=== PATIENT | female | born 2000 | race Caucasian/White ===

== ENCOUNTER 2023-09-09 08:47 | Outpatient (RCR) | payer OTHER, SELFPAY ==
--- NOTE | 2023-09-09 11:56 | PTOPEVAL1 ---
Assessment and note entered by Odette Vizcarra, PT, DPT Evaluation Information Assessment Status Evaluation Diagnosis R knee pain Onset 1-2 months Subjective Information Pt reports R sided knee pain that is the worst when squatting or when going down stairs. About 1- 2 months ago hit the lateral side of her knee, she does not remember hearing a pop or anything, it just bruised and was swollen. She reports medial knee pain as well as under the patella. 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 Reported Pain Level Pain Score 1: Self Report Assessment PT Clinical Summary Sally presents to therapy today for her initial evaluation with a diagnosis of R knee pain. Today she demonstrates good knee ROM and strength without an increase in pain. She demonstrates good functional stability during stair ambulation and squatting but reports a mild increase in pain during these. Kinesotape was added for knee stability and this decreased pain. Discussed with pt to utilize ice for joint swelling, tape as needed, work on knee/hip stability, and to progress towards a return to PLOF as tolerated. She was issued and HEP to work on for the next month, she will follow up if needed. Plan of Care Interventions Electrical Stimulation,Gait Training,Hot Pack/Cold Pack,Manual Therapy,Neuro Re-education,Patient/ Caregiver Educati,Therapeutic Activities, Therapeutic Exercise PT Services Indicated Yes Treatment Frequency and follow up if needed Duration These treatments will address the objective and functional deficits as defined above. The patient will be advanced safely and appropriately in order for the patient to progress towards his/her prior level of function. Additional exercises will be introduced and as well as a comprehensive home exercise program upon discharge, if needed, ?to ensure carryover of functional gains achieved in the clinic. This treatment plan has been reviewed and agreement upon by the patient.
--- NOTE | 2023-11-25 13:33 | PTOPDC ---
Assessment and note entered by Sangeeta Sandoval DPT Evaluation Information Assessment Status Discharge - Pt Not Present Diagnosis R knee pain Onset 1-2 months Subjective Information - Assessment PT Clinical Summary The patient has not attended therapy since evaluation on 09/09/23. She will be discharged this date. Plan of Care PT Services Indicated No
== END 2023-11-25 15:20 | disposition home or self-care (01) ==
LOC: ANHGOSHPT 08:47
PROVIDERS: PCP Emergency Medicine; Visit Provider Emergency Medicine
DX: M23.300 Other meniscus derangements, unspecified lateral meniscus, right knee (principal)
CPT/HCPCS: 97110; 97161

== ENCOUNTER 2023-10-21 15:47 | Outpatient (CLI) | payer OTHER, SELFPAY ==
--- NOTE | ~2023-10-21 | MR_ITS ---
EXAMINATION: MR knee RT wo con DATE: 10/21/2023 16:17 INDICATION: Other meniscus derangement presenting with anterior right knee pain TECHNIQUE: Magnetic resonance imaging (MRI) of the right knee was performed without intravenous contr ast. Sequences included coronal PD-weighted FSE, coronal PD-weighted FS FSE, sagittal T2-weighted FS E, sagittal PD-weighted FS FSE and axial PD weighted fat saturated FSE. COMPARISON: None. FINDINGS: Medial compartment: Medial meniscus is normal. Mild partial-thickness cartilage loss with subtle chondral surface irregul arity along portions of the anterior to central weightbearing medial femoral condyle. Normal cartilag e along the medial tibial plateau. Lateral compartment: Lateral meniscus is normal. Articular cartilage is normal. Patellofemoral compartment: Preserved cartilage thickness and patellofemoral compartment but with deeper fissuring at the medial patellar facet without degenerative subchondral changes. Ligaments and tendons: Anterior and posterior cruciate ligaments are normal. The medial collateral ligament and fibular brenna ateral ligament complex are normal. The extensor mechanism is normal. The visualized medial and later al hamstring tendons as well as the iliotibial band are normal. Fluid: Physiologic amount of fluid in the joint space. No loose osteochondral bodies identified. Osseous/other: Normal marrow signal. No fracture or pathologic marrow replacing process. IMPRESSION: 1. Deep chondral fissuring without degenerative subchondral changes at the medial patellar facet and mild partial-thickness cartilage loss with subtle chondral surface irregularity along the anterior to central weightbearing medial femoral condyle. 2. Otherwise normal study with normal bones, menisci and stabilizing ligaments of the knee. Reviewed, dictated and finalized at location A. IMPRESSION: 1. Deep chondral fissuring without degenerative subchondral changes at the medi al patellar facet and mild partial-thickness cartilage loss with subtle chondra l surface irregularity along the anterior to central weightbearing medial femor al condyle. 2. Otherwise normal study with normal bones, menisci and stabilizing ligaments of the knee.
--- NOTE | ~2023-10-21 | XR_ITS ---
EXAMINATION: XR knee RT min 4V DATE: 10/21/2023 16:23 INDICATION: Meniscal derangement with anterior right knee pain post injury 3 months prior TECHNIQUE: Weight bearing anteroposterior and Magdaleno, sunrise, and flexed lateral views of the rig ht knee were obtained COMPARISON: None. FINDINGS: Alignment is normal. No fracture. No joint effusion/layering lipohemarthrosis. Soft tissues are unre markable. IMPRESSION: 1. Negative right knee radiographs. Reviewed, dictated and finalized at location A.
== END 2023-10-21 15:48 ==
LOC: MICIMG 15:47
PROVIDERS: PCP Emergency Medicine; Visit Provider Emergency Medicine
DX: M23.300 Other meniscus derangements, unspecified lateral meniscus, right knee (principal)
CPT/HCPCS: 73564; 73721

== ENCOUNTER 2024-04-03 15:17 | Emergency (ER) | payer OTHER, SELFPAY ==
--- NOTE | ~2024-04-03 | XR_ITS ---
XR ankle RT min 3V DATE: 04/03/2024 15:37 INDICATION: Right ankle. Lateral pain. TECHNIQUE: 4 views COMPARISON: None FINDINGS: No swelling, fracture or dislocation of the ankle or disruption of the ankle mortise. No pe riosteal reaction or bone destruction. Ankle joint space is well preserved. IMPRESSION: Negative Reviewed, dictated and finalized at location A. IMPRESSION: Negative
[2024-04-03 15:25] VITALS: BP 118/74; PULSE 82; RESP 16; TEMP 36.6; O2SAT 99
--- NOTE | 2024-04-03 15:43 | ED_ITS ---
HPI - Extremity Injury (Lower) General Chief Complaint: Extremity Injury, Lower Stated Complaint: rolled right ankle Source: patient Mode of arrival: ambulatory Limitations: no limitations History of Present Illness HPI Narrative: 23-year-old female presented for complaint of right ankle pain after injury last night. She states she stepped wrong and rolled the ankle. She has taken ibuprofen. Endorses she has been able to bear weight without difficulty. Pain is mostly with certain movements like rotation of the ankle. Related Data Home Medications Medication Instructions Recorded Confirmed No Home Medications 08/29/23 04/03/24 Allergies Allergy/AdvReac Type Severity Reaction Status Date / Time No Known Allergies Allergy Verified 04/03/24 15:40 Review of Systems Review of Systems: CONSTITUTIONAL: Denies body aches, fever, chills CARDIOVASCULAR: Denies chest pain, palpitations, or edema. SKIN: Denies wounds. MUSCULOSKELETAL: Reports right ankle pain NEUROLOGIC: Denies headache, numbness, tingling, or weakness. PSYCH: Denies depression or anxiety. All systems reviewed & are unremarkable except as noted in HPI and below [facility] Surgical History Surgical History History of tonsillectomy (~2006) Family History Family History Father Heart valve problem Mother Heart valve problem Sibling Asthma Depression Grandparent Colon polyp Heart valve problem COPD (chronic obstructive pulmonary disease) Grandparent Brain cancer Social History Social History 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- coffee and cola Smoking status: Never smoker Tobacco type: e-cigarettes/vaping Alcohol intake: current Drinks per week: 1 Alcohol use details: social Substance use type: does not use Do You Feel Safe in your Home?: Yes Lack of Transportation: No Lack of Food: Never True Current Housing: I Have Housing Concerned About Future Housing: No Difficulty Paying Gas/Electric Bills: No Difficulty Paying for Meds: No Currently Unemployed: No Education: Trade/Vocational Certificate Difficulty w/ Childcare or Family Care: No Living arrangements: alone 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 Please see nursing chart for further information. There is no relevant family history pertinent to the presenting complaint Exam Narrative: GENERAL: Well-appearing CHEST: Speaks in full sentences. No respiratory distress. HEART: Regular rate and rhythm. Normal and equal peripheral pulses. EXTREMITIES: Right ankle has normal strength and sensation, normal range of motion with flexion/extension/rotation, but endorses pain with rotation movement. No edema or ecchymosis, No point tenderness. No open wounds, or obvious deformity; alignment normal, pulse palpable and equal bilaterally, skin warm, dry, pink. Capillary refill less than 3 seconds. SKIN: Warm, dry, no rash. NEURO: Alert and oriented x3. PSYCH: Normal mood and affect Course Course Emergency Course: Patient is aware of diagnosis, understands and agrees to treatment plan. Anticipatory guidance given. Patient agrees to follow-up as directed and is aware of reasons to seek care at the emergency department. Portions of this record may have been created with voice recognition software Level of Care: Express Care Visit Vital Signs Vital signs: Vital Signs Temperature 97.9 F 04/03/24 15:25 Pulse Rate 82 04/03/24 15:25 Respiratory Rate 16 04/03/24 15:25 Blood Pressure 118/74 04/03/24 15:25 Pulse Oximetry 99 04/03/24 15:25 Temperature 97.9 F 04/03/24 15:25 Pulse Rate 82 04/03/24 15:25 Respiratory Rate 16 04/03/24 15:25 Blood Pressure 118/74 04/03/24 15:25 Pulse Oximetry 99 04/03/24 15:25 Reviewed MDM - Extremity Injury (Lower) MDM Narrative Medical decision making narrative: Discussed physical exam findings and x-ray. Uday wrap applied. Advised supportive measures and signs/symptoms to go to the ER. Pt is appropriate for outpt treatment and f/u. Differential Diagnosis Differential diagnosis: Likely ankle sprain and strain and ankle fracture Imaging Data Radiologist's impression: Patient: Sally Haney : 2000 MR#: [id number] Age: 23 Acct:[id number] Loc: [id number] ADM Date: 04/03/24Attending Dr: Ordering Physician: Beatriz Martin APRN Date of Service: 04/03/24 Procedure(s): XR ankle RT min 3V Accession Number(s): [id number] cc: Juan Hawthorne MD; Beatriz Martin APRN~ XR ankle RT min 3V DATE: 04/03/2024 15:37 INDICATION: Right ankle. Lateral pain. TECHNIQUE: 4 views COMPARISON: None FINDINGS: No swelling, fracture or dislocation of the ankle or disruption of the ankle mortise. No periosteal reaction or bone destruction. Ankle joint space is well preserved. IMPRESSION: Negative Discharge Plan Discharge Clinical Impression: Ankle sprain and strain Patient Disposition: Home, Self-Care Condition: Stable Instructions: Antibiotic Form, Ankle Sprain (ED) Additional Instructions: Rest - avoid excessive walking, running jumping etc elevate the right leg; bear weight as tolerated Apply ice 15-20 minute intervals several times a day Keep it wrapped with UDAY or use a soft ankle splint Motrin 600mg every 8 hours, alternate with Tylenol 1000mg every 8 hours as needed Follow up with your primary care provider as needed in 1 week Go to the ER for worsening symptoms or concerns Prescriptions: No Action No Home Medications Follow-up/Referrals: Juan Hawthorne MD [Primary Care Provider] - Stand Alone Forms: Work/School Release IP
== END 2024-04-03 16:14 | disposition home or self-care (01) ==
PROVIDERS: Emergency Provider Nurse Practitioner Family; PCP Emergency Medicine
DX: S93.401A Sprain of unspecified ligament of right ankle, initial encounter (principal); S96.911A Strain of unspecified muscle and tendon at ankle and foot level, right foot, initial encounter; X50.9XXA Other and unspecified overexertion or strenuous movements or postures, initial encounter; F17.290 Nicotine dependence, other tobacco product, uncomplicated
CPT/HCPCS: 73610; 99213; G0463

== ENCOUNTER 2024-07-13 12:33 | Outpatient (CLI) | payer BC, SELFPAY ==
--- OUTSIDE RECORDS SUMMARY | 2024-07-13 13:24 | XMS_ITS | Continuity of Care Document ---
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 It does not include entries that were removed or entered in error. Problem Status Onset Date Problem Type Date of Resolution Comments Source No Known Problems Active Condition [facility]A-[facility] Bryan camacho Medications Combined list of outpatient medications from Department of Defense and Veterans Affairs facilities.Medications provided include 1) outpatient medications from the last 15 months, and 2) patient-reported medications. Medication Details Route Status Patient Instructions Prescription Expires Prescription Number Last Dispense Date Ordering Provider Order Date Order Qty Source FLUARIX QUAD 9982-9479 (influenza virus vaccine quadrival 8530-9484(6 mos and up)/PF), 60MCG/.5ML, SYRINGE, INTRAMUSC, GLAXOSMITHK LINE, .5 ml SYRINGE Active [id number] 4 2023 0.5 Pharmac y Data Transac tion Service Facilit y Immunizations Combined list of available immunizations from the Department of Defense and Veterans Affairs facilities. Immunization Series Date Given Administered By Site Reaction Lot Number CVX Code Drug Treater Status Comments Source measles/mumps /rubella virus vaccine 2021 Louis card Arm, left upper [id number] [employer] Company Inc complet ed measles/m umps/rube lla virus vaccine 03/20/22 Given 0108A-A TIM Randall influenza virus vaccine, inactivated 2021 Louis card Shoul anuel, left (delt oid) [id number] 150 [employer] complet ed influenza virus vaccine, inactivat ed 03/20/22 Given 0108A-A TIM Randall hepatitis A adult vaccine 2019 UNK 52 Unknown complet ed hepatitis A adult vaccine 06/12/19 Given Ambulat ory Pharmac y hepatitis B adult vaccine 2019 UNK 43 Unknown complet ed hepatitis B adult vaccine 06/12/19 Given Ambulat ory Pharmac y influenza, seasonal, injectable 2018 [id number] 141 Seqirus complet ed influenza , seasonal, injectabl e 04/13/19 Given Ambulat ory Pharmac y hepatitis A-hepatitis B vaccine 2018 [id number] GlaxoSmithKli ne complet ed hepatitis A-hepatit is B vaccine 02/17/19 Given Ambulat ory Pharmac y meningococcal A,C,Y,W-135 (MCV4P) 2018 [id number] 114 sanofi pasteur complet ed meningoco ccal A,C,Y,W-1 35 (MCV4P) 12/17/18 Given Ambulat ory Pharmac y hepatitis A-hepatitis B vaccine 2018 [id number] 104 GlaxoSmithKli ne complet ed hepatitis A-hepatit is B vaccine 12/17/18 Given Ambulat ory Pharmac y poliovirus vaccine, inactivated 2018 [id number] 10 sanofi pasteur complet ed polioviru s vaccine, inactivat ed 12/17/18 Given Ambulat ory Pharmac y tetanus, diphtheria, acellular pertu is 2018 [id number] 115 GlaxoSmithKli ne complet ed tetanus, diphtheri a, acellular pertussis 12/17/18 Given Ambulat ory Pharmac y adenovirus vaccine, live 2018 [id number] 4 143 Teva Pharmaceutica ls complet ed adenoviru s vaccine, live 12/17/18 Given Ambulat ory Pharmac y tetanus, diphtheria, acellular pertu is 2018 525NP 115 GlaxoSmithKli ne complet ed tetanus, diphtheri a, acellular pertussis 12/17/18 Given Ambulat ory Pharmac y hepatitis A-hepatitis B vaccine 2018 [id number] 104 GlaxoSmithKli ne complet ed hepatitis A-hepatit is B vaccine 12/17/18 Given Ambulat ory Pharmac y poliovirus vaccine, inactivated 2018 [id number] 10 sanofi pasteur complet ed polioviru s vaccine, inactivat ed 12/17/18 Given Ambulat ory Pharmac y adenovirus vaccine, live 2018 [id number] 4 143 Teva Pharmaceutica ls complet ed adenoviru s vaccine, live 12/17/18 Given Ambulat ory Pharmac y meningococcal A,C,Y,W-135 (MCV4P) 2018 [id number] 114 sanofi pasteur complet ed meningoco ccal A,C,Y,W-1 35 (MCV4P) 12/17/18 Given Ambulat ory Pharmac y measles, mumps and rubella virus vaccine 1 2018 UNK 03 Unknown (UNK) Not Given measles, mumps and rubella virus vaccine DoD poliovirus vaccine, inactivated 1 2018 [id number] 10 Sanofi Pasteur (PMC) complet ed polioviru s vaccine, inactivat ed DoD varicella virus vaccine 1 2018 UNK 21 Unknown (UNK) Not Given varicella virus vaccine DoD hepatitis A and hepatitis B vaccine 1 2018 [id number] 104 SmithKline (SKB) complet ed hepatitis A and hepatitis B vaccine DoD meningococcal polysaccharid e (groups A, C, Y and W-135) diphtheria toxoid conjugate vaccine (MCV4P) 1 2018 [id number] 114 Sanofi Pasteur (PMC) complet ed meningoco ccal polysacch aride (groups A, C, Y and W-135) diphtheri a toxoid conjugate vaccine (MCV4P) DoD tetanus toxoid, reduced diphtheria toxoid, and acellular pertu is vaccine, adsorbed 1 2018 525NP 115 [employer]Kline (SKB) complet ed tetanus toxoid, reduced diphtheri a toxoid, and acellular pertussis vaccine, adsorbed DoD Adenovirus, type 4 and type 7, live, oral 1 2018 [id number] 4 143 [facility] (BRR) complet ed Adenoviru s, type 4 and type 7, live, oral DoD Results Combined list of recent chemistry, hematology and other laboratory results from Department of Defense and Veterans Affairs, ranging from 15 months to all on record, depending upon the facility. Order Name Results Value Reference Range Date Interpretation Specimen Comments Source Infectiou s Disease HIV-1/2 AG/AB 4G CDD LC NEGATIVE 04/07 Result Comment: Performed At: 1 [facility] [id number] [facility] [address] [place] [address] DESIREE SYED PHD Ph:[phone] 0108A-AM Jerrica Zavala Infectiou s Disease Source of Test.LC PostDepSt orage (04/07/23 9:00 AM) 04/07 N 0108A-AM C Bryan Zavala Hematolog y Hemoglob in.LC 12.6 g/dL 03/20 0108A-[facility] Bryan Zavala Hematolog y G-6-PD, Quant LC 9.7 unit/gHb 03/20 Result Comment: When decreased, G-6-PD, Quant. values are associated with acute hemolytic anemia when deficient individuals are exposed to oxidative stress, such as with certain medications (e.g., primaquine), infection, or ingestion of abi beans. Caution: In patients with acute hemolysis (e.g., abnormally low RBC values), testing for G-6-PD may be falsely normal because older erythrocytes with a higher enzyme deficiency have been hemolyzed. Young erythrocytes and reticulocyte s have normal or near-normal enzyme activity. Normal values of G-6-PD may be measured for several weeks following a hemolytic event. Performed At: 01 [facility] [address] [id number] Katelin Medellin MD Ph:[phone] Performed At: [address] [facility] [address] [id number] Min Villalobos MD Ph:[phone] 0108A-AM C Bryan Zavala Hematolog y Sickle Cell Screen Negative (03/20/22 8:20 AM) 03/20 N 0108A-[facility] Bryan Zavala Chemistry POC HCG, Serum Negative IntlUnit/ L 03/20 0108A-[facility] Bryan Zavala Vital Signs Combined list of inpatient and outpatient Vital Signs from Department of Defense and Veterans Affairs, ranging from 12 months to all on record, depending upon the facility. Vital Sign Value Date Comments Source Temperature Oral 37.1 Ayaka 04/08/2023 19:54:00 0108A-[facility] Bryan Julio Peripheral Pulse Rate 76 bpm 04/08/2023 19:54:00 0108A-[facility] Bryan Julio Systolic Blood Pressure 103 mm[Hg] 11/07/20 23 19:54:00 0108A-[facility] Bryan Julio Diastolic Blood Pressure 70 mm[Hg] 023 19:54:00 Jose Miguel-[facility] Bryan Julio Mean Arterial Pressure, Calc 81 mm[Hg] 04/08/2023 19:54:00 010Franki-[facility] Bryan Julio Temperature Temporal Artery 36.4 Ayaka 04/07/2023 14:30:00 Jose Miguel-[facility] Bryan Julio Peripheral Pulse Rate 89 bpm 04/07/2023 14:30:00 [facility] Bryan Julio Systolic Blood Pressure 122 mm[Hg] 04/07/20 23 14:30:00 Jose Miguel-[facility] Bryan Julio Diastolic Blood Pressure 82 mm[Hg] 023 14:30:00 Jose Miguel-[facility] Bryan Julio Temperature Temporal Artery 36.1 Ayaka 03/20/2022 14:01:00 Jose Miguel-[facility] Bryan Julio Systolic Blood Pressure 118 mm[Hg] 03/20/20 22 14:01[facility] Diastolic Blood Pressure 76 mm[Hg] 022 14:01:00 Jose Miguel-[facility] Bryan Julio Peripheral Pulse Rate 86 bpm 03/20/2022 14:01:00 [facility] Julio Encounters Combined list of: 1) Encounters from Department of Veterans Affairs facilities going backup to the last 18 months, not all VA inpatient encounters are included; 2) Encounters from the Department of Defense facilities going backup to 280 months. Location Location Details Encounter Type Encounter Number Reason For Visit Attending Provider ADM Date DC Date Status Disposition Source NADIA Mejia(IEP Soldiers Initial Entry) OUTPATIENT [id number] Notes Entered by: RADHA OZUNA 15 Dec [id number] ------- ------- ------- ------- -- [id number] DAY 1 594 ISMAEL GREENE 12/15 Released w/o Limitations NADIA Mejia([place] Initial Entry) [facility] Carlos A [place](IEP Optometry ) OUTPATIENT [id number] Notes Entered by: Anastasiia MONTOYA 15 Dec 2018 0716 ------- ------- ------- ------- -- Optomet ry Rani EDGAR Corbin 12/15 [facility]o Limitations [facility] [place] [place] Conserv[place] Ex[place] OUTPATIENT [id number] Notes Entered by: Anastasiia MONTERROSO 16 Dec 2018 0944 ------- ------- ------- ------- -- 594 ANIKET MONTERROSO 12/16 [facility]ased w/o Limitations [facility] [place] [facility] [place] OUTPATIENT [id number] Notes Entered by: ELI ROSALES 17 Dec 2018 0640 ------- ------- ------- ------- -- [id number] DAY 3 594 ALLAN NG 12/17 [facility]ased w/o Limitations [facility] [place] [facility] [place] OUTPATIENT [id number] Notes Entered by: RADHA OZUNA 17 Feb 2019 0627 ------- ------- ------- ------- -- E CO 1-48 HALEIGH LEACH 02/17 Released w/o Limitations [facility] [place] Procedures Combined list of: 1) Procedures from Department of Veterans Affairs facilities going back up to thelast 18 months, not all VA non-surgical procedures are included; 2) All procedures from the Department of Defense facilities. Procedure Procedure Type Code Date Perfomer Comments Sourc e No data available for this section Ambulato ry Pharmacy IMMUNIZATION ADMINISTRATION (INCLUDES PERCUTANEOUS, INTRADERMAL, SUBCUTANEOUS, OR INTRAMUSCULAR INJECTIONS); 1 VACCINE (SINGLE OR COMBINATION VACCINE/TOXOID) [facility] ADENOVIRUS VACCINE, TYPE 7, LIVE, FOR ORAL USE [facility] AUDIOMETRIC TESTING OF GROUPS [facility] SCREENING TEST OF VISUAL ACUITY, QUANTITATIVE, BILATERAL [facility] COLLECTION OF VENOUS BLOOD BY VENIPUNCTURE [facility] Vaccines Viral Polio, Inactivated Vaccines Viral Polio, Inactivated 36923 ALLAN NG [facility] Physician Supervised Injection Intramuscular Antibiotic Physician Supervised Injection Intramuscular Antibiotic 39595 BERENICE [facility] Vaccines Adenovirus Type 4 Live, For Oral Use Vaccines Adenovirus Type 4 Live, For Oral Use [address] [place], [place] [address]GLER [facility] Vaccines Adenovirus Type 7 Live, For Oral Use Vaccines Adenovirus Type 7 Live, For Oral Use 73712 [facility] ALLAN NG [facility] Meningococcal Polysaccharide Diphtheria Toxoid Conjugate Vaccine BERENICE, [facility] Immunization Administration By Injection, One Vaccine Immunization Administration By Injection, One Vaccine [address] [place] [address] ALLAN [facility] Immunization Administration By Injection, Each Additional Vaccine Immunization Administration By Injection, Each Additional Vaccine [address] [place] [address] [facility] Hepatitis A And Hepatitis B (Intramuscular Use) Adult Dosage Hepatitis A And Hepatitis B (Intramuscular Use) Adult Dosage 85955 [facility] BERENICE [facility] Tdap Vaccine Tdap Vaccine [address] [place], [place] [address]THEO [facility]ometry Group Testing Audiometry Group Testing 61975 ANIKET MONTERROSO [facility] Venipuncture Venipuncture 03742 ASTRONOMISMAEL Barrientos [facility] Spectacles Services Fitting Monofocal Except For Aphakia Spectacles Services Fitting Monofocal Except For Aphakia 72267 EDGAR PARKER Habitual Rx OD -2.50 DS 20/20 OS -3.25 DS 20/20 PD: 63 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 [facility] Screening Test Of Visual Acuity, Quantitative, Bilateral Screening Test Of Visual Acuity, Quantitative, Bilateral 22013 Radha EDGAR PARKER [facility] Hepatitis A And Hepatitis B (Intramuscular Use) Adult Dosage Hepatitis A And Hepatitis B (Intramuscular Use) Adult Dosage 28389 HALEIGH BONILLA [facility] Immunization Administration By Injection, One Vaccine Immunization Administration By Injection, One Vaccine 70789 HALEIGH BONILLA [facility] Social History Combined list of available smoking, tobacco, and other social history from Department of Defense and Veterans Affairs facilities. Social History Type Response Date Comment Sourc e Female 08/21/2020 Ambulatory Pha rmacy Tobacco Never-cigarette user Cigarette use:. Never-other tobacco user (not cigarettes) Other Tobacco use:. Ambulatory Pharmacy Sexual Orientation Ambula tory Pharmacy Gender identity Ambulator y Pharmacy This section is an empty social history section. DoD Assessment and Plan Combined list of future care activities from Department of Defense and Veterans Affairs facilities (e.g., assessment and plan notes, appointments, orders, and referrals). Additional future care activities may be listed in the Plan of Care section. Result Assessment and Plan Date Source Assessment and Plan No data available for this section 07/13/2024 Ambulatory Pharmacy Functional Status Combined list of recent functional and cognitive assessments recorded at Department of Defense and Veterans Affairs (VA).VA Functional Wood Measurement (FIM) Scale: 1 = Total Assistance (Subject = 0% +), 2 = Maximal Assistance (Subject = 25% +), 3 = Moderate Assistance (Subject = 50% +), 4 = Minimal Assistance (Subject = 75% +), 5 = Supervision, 6 = Modified Wood (Device), 7 = Complete Wood (Timely, Safely). Assessment Date/Time Source Assessment Type Assessment Skill Assessment Score Assessment Details No data available for this section
[2024-07-13 19:33] LABS: Basophils Percent Auto 0.4 % (0.2-1.2); Eosinophils Absolute Auto 0.1 K/mm3 (0-0.3); Hematocrit 38.7 % (37.0-47.0); Immature Granulocyte Absolute 0.01 K/mm3 (0.00-0.031); Immature Granulocyte Percent A 0.1 % (0-0.5); Lymphocytes Absolute Auto 1.56 K/mm3 (0.9-3.2); Lymphocytes Percent Auto 22.3 % (18.3-44.2); Mean Corpuscular HGB Conc 33.6 g/dl (32-36); Mean Corpuscular Hemoglobin 29.5 pg (26-34); Mean Corpuscular Volume 87.8 fl (80-100); Mean Platelet Volume 10.1 fl (7.4-10.4); Monocytes Absolute Auto 0.4 K/mm3 (0.1-0.6); Neutrophils Percent Auto 71.2 % (45.5-73.1); Platelet Count Result 195 k/mm3 (150-375); Red Blood Count 4.41 M/mm3 (4.2-5.4); Red Cell Distribution Width 11.6 % (11.5-14.5)
[2024-07-13 21:43] LABS: Hepatitis B Surface Antigen Negative (Negative); Rubella IgG Antibody 86.5 IU/ML
[2024-07-13 23:17] LABS: Vitamin D 25 Hydroxy 40.1 ng/mL
[2024-07-13 23:25] LABS: HIV 1/2 Ab P24 Ag Result Negative (Negative)
[2024-07-14 00:05] LABS: Iron 90 ug/dL (37-170); Percent Iron Saturation 29 % (20-50)
[2024-07-14 06:39] LABS: Rapid Plasma Reagin Non-Reactive (NonReactive)
[2024-07-14 16:19] LABS: Varicella IgG Antibody 5.92 S/CO
== END 2024-07-13 12:34 | disposition home or self-care (01) ==
LOC: ANHGOSHLAB 12:33
PROVIDERS: Visit Provider Obstetrics & Gynecology
DX: N94.89 Other specified conditions associated with female genital organs and menstrual cycle (principal)
CPT/HCPCS: 36415; 81220; 81329; 82306; 82728; 83540; 83550; 84702; 85025; 86592; 86644; 86703; 86747; 86762; 86787; 86850; 86900; 86901; 87086; 87340; G0432

== ENCOUNTER 2024-11-10 10:21 | Outpatient (CLI) | payer BC, SELFPAY ==
--- OUTSIDE RECORDS SUMMARY | 2024-11-10 11:58 | XMS_ITS | Continuity of Care Document ---
Author Name [facility] Organization [facility] Care Team Providers Care Technical Sme Name Role Phone [facility] Unavailable Unavailable Problems Combined list of problems from Department of Defense and Veterans Affairs facilities. It does not include entries that were removed or entered in error. Problem Status Onset Date Problem Type Date of Resolution Comments Source No Known Problems Active Condition 0108A-[facility] Bryan Ash s Immunizations Combined list of available immunizations from the Department of Defense and Veterans Affairs facilities. 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 Comments Source measles/mumps /rubella virus vaccine 2021 Louis card Arm, left upper [id number] [employer] complet ed measles/m umps/rube lla virus vaccine 03/20/22 Given 0108A-A Bryan Awan t-[place] influenza virus vaccine, inactivated 2021 Louis rs Shoul anuel, left (delt oid) [id number] 150 [employer] complet ed influenza virus vaccine, inactivat ed 03/20/22 Given 0108A-A Bryan Awan t-[place] hepatitis A adult vaccine 2019 [id number] 52 Unknown complet ed hepatitis A adult vaccine 06/12/19 Given Ambulat ory Pharmac y hepatitis B adult vaccine 2019 [id number] 43 Unknown complet ed hepatitis B adult vaccine 06/12/19 Given Ambulat ory Pharmac y influenza, seasonal, injectable 2018 [id number] 141 Seqirus complet ed influenza , seasonal, injectabl e 04/13/19 Given Ambulat ory Pharmac y hepatitis A-hepatitis B vaccine 2018 [id number] GlaxoSmithKli ne complet ed hepatitis A-hepatit is B vaccine 02/17/19 Given Ambulat ory Pharmac y meningococcal A,C,Y,W-135 (MCV4P) 2018 [id number] 114 sanofi pasteur complet ed meningoco ccal A,C,Y,W-1 35 (MCV4P) 12/17/18 Given Ambulat ory Pharmac y hepatitis A-hepatitis B vaccine 2018 [id number] 104 GlaxoSmithKli ne complet ed hepatitis A-hepatit is B vaccine 12/17/18 Given Ambulat ory Pharmac y poliovirus vaccine, inactivated 2018 [id number] 10 sanofi pasteur complet ed polioviru s vaccine, inactivat ed 12/17/18 Given Ambulat ory Pharmac y tetanus, diphtheria, acellular pertu is 2018 [id number] 115 GlaxoSmithKli ne complet ed tetanus, diphtheri a, acellular pertussis 12/17/18 Given Ambulat ory Pharmac y adenovirus vaccine, live 2018 [id number] 143 Teva Pharmaceutica ls complet ed [...] ory Pharmac y poliovirus vaccine, inactivated 2018 [id number] 10 sanofi pasteur complet ed polioviru s vaccine, inactivat ed 12/17/18 Given Ambulat ory Pharmac y adenovirus vaccine, live 2018 [id number] 4 143 Teva Pharmaceutica ls complet ed adenoviru s vaccine, live 12/17/18 Given Ambulat ory Pharmac y meningococcal A,C,Y,W-135 (MCV4P) 2018 [id number] 114 sanofi pasteur complet ed meningoco ccal A,C,Y,W-1 35 (MCV4P) 12/17/18 Given Ambulat ory Pharmac y measles, mumps and rubella virus vaccine 1 2018 UNK 03 Unknown (UNK) Not Given measles, mumps and rubella virus vaccine DoD poliovirus vaccine, inactivated 1 2018 [id number] 10 Sanofi Pasteur (PMC) complet ed polioviru [...] diphtheria toxoid conjugate vaccine (MCV4P) 1 2018 [id number] 114 Sanofi Pasteur (PMC) complet ed meningoco ccal polysacch aride (groups A, C, Y and W-135) diphtheri a toxoid conjugate vaccine (MCV4P) DoD tetanus toxoid, reduced diphtheria toxoid, and acellular pertu is vaccine, adsorbed 2018 [id number] 115 Check-CapKline (SKB) complet ed tetanus toxoid, reduced diphtheri a toxoid, and acellular pertussis vaccine, adsorbed DoD Adenovirus, type 4 and type 7, live, oral 2018 [id number] 4 143 [employer] ([facility]) complet ed Adenoviru s, type 4 and [...] Performed At: 1 [facility] [address] [facility] [address] [place] [address] DESIREE LYNCH PHD Ph:[phone] 0108A-AM Jerrica Zavala Infectiou s Disease Source of Test.LC PostDepSt orage (04/07/23 9:00 AM) 04/07 N 0108A-AM Jerrica Zavala Hematolog y G-6-PD, Quant LC 9.7 [...] following a hemolytic event. Performed At: 01 [facility] [address] [place], [place] [id number] Katelin Medellin MD Ph:[phone] Performed At: [address] [id number] Min Villalobos MD Ph:[phone] 0108A-AM C Bryan Zavala Hematolog y Hemoglob in.LC 12.6 g/dL 03/20 0108A-AM C Bryan Zavala Hematolog y Sickle Cell Screen Negative (03/20/22 8:20 AM) 03/20 N 0108A-AM Jerrica Zavala Chemistry POC HCG, Serum Negative IntlUnit/ L 03/20 0108A-AM Jerrica Zavala Vital Signs Combined list of inpatient and outpatient Vital Signs from Department of Defense and Veterans Affairs, ranging from 12 months to all on record, depending upon the facility. Vital Sign Value Date Comments Source Systolic Blood Pressure 103 mm[Hg] 04/08/20 23 19:54:00 0108A-[facility] Bryan Julio Diastolic Blood Pressure 70 mm[Hg] 023 19:54:00 0108A-[facility] Bryan Julio Peripheral Pulse Rate 76 bpm 04/08/2023 19:54:00 0108A-[facility] Bryan Julio Mean Arterial Pressure, Calc 81 mm[Hg] 04/08/2023 19:54:00 0108A-[facility] Bryan Julio Temperature Oral 37.1 Ayaka 04/08/2023 19:54:00 0108A-[facility] Bryan Julio Peripheral Pulse Rate 89 bpm 04/07/2023 14:30:00 0108A-[facility] Bryan Julio Temperature Temporal Artery 36.4 Ayaka 04/07/2023 14:30:00 0108A-[facility] Bryan Julio Systolic Blood Pressure 122 mm[Hg] 04/07/20 23 14:30:00 010SUSAN Julio Diastolic Blood Pressure 82 mm[Hg] 023 14:30:00 010Franki-[facility] Bryan Julio Systolic Blood Pressure 118 mm[Hg] 03/20/20 22 14:01:00 010Franki-[facility] Bryan Julio Diastolic Blood Pressure 76 mm[Hg] 022 14:01:00 [facility] Temperature Temporal Artery 36.1 Ayaka 03/20/2022 14:01:00 Franki-[facility] Bryan Julio Peripheral Pulse Rate 86 bpm 03/20/2022 14:01:00 [facility] Bryan Julio Encounters Combined list of: 1) Encounters from [facility] facilities going backup to the last 18 months, not all VA inpatient encounters are included; 2) Encounters from the Department of Defense facilities going backup to 280 months. Location Location Details Encounter Type Encounter Number Reason For Visit Attending Provider ADM Date DC Date Status Disposition Source [place] OUTPATIENT [id number] Notes Entered by: RADHA OZUNA 15 Dec 2018 0612 ------- ------- ------- ------- -- [id number] DAY 1 594 ISMAEL GREENE 12/15 Released w/o Limitations [place] OUTPAT[place] [id number] Notes Entered by: Anastasiia MONTOYA 15 Dec 2018 0716 ------- ------- ------- ------- -- Optomet ry EDGAR Yoder 12/15 Released w/[place] Limitations [place] OUTPATIENT [id number] Notes Entered by: Anastasiia MONTERROSO 16 Dec 2018 0944 ------- ------- ------- ------- -- 594 ANIKET MONTERROSO 12/16 [facility] Limitations [facility] [place] OUTPATIENT [id number] Notes Entered by: ELI ROSALES 17 Dec 2018 0640 ------- ------- ------- ------- -- [id number] DAY 3 594 ALLAN NG 12/17 Released w/o Limitations [place] OUTPATIENT [id number] Notes Entered by: RADHA OZUNA 17 Feb 2019 0627 ------- ------- ------- ------- -- E CO 1-48 HALEIGH LEACH 02/17 Released w/o Limitations [place] Procedures Combined list of: [...] [facility] Vaccines Viral Polio, Inactivated ([place]) Vaccines Viral Polio, Inactivated ([place]) 81585 BERENICE, ALLAN DoD Dr. Supervised Injection Intramuscular Antibiotic Supervised Injection Intramuscular Antibiotic [id number] 019 ALLAN NG [facility] Vaccines Adenovirus Type 4 Live, For Oral Use Vaccines Adenovirus Type 4 Live, For Oral Use 06079 019 BERENICE [facility] Vaccines Adenovirus Type 7 Live, For Oral Use Vaccines Adenovirus Type 7 Live, For Oral Use 11795 BERENICE ALLAN [facility] Meningococcal Polysacch Diphtheria Toxoid Conjugate Vaccine BERENICE, [facility] Immunization Administration One Vaccine Immunization Administration One Vaccine 07455 GORDON ALLAN [facility] Immunization Administration Each Additional Vaccine Immunization Administration Each Additional Vaccine 74910 GORDON [facility] Hepatitis A And Hepatitis B (Intramuscular Use) Adult Dosage Hepatitis A And Hepatitis B (Intramuscular Use) Adult Dosage 13559 BERENICE [facility] Tdap Vaccine Tdap Vaccine 44269 GORDON [facility] Audiometry Group Testing Audiometry Group Testing 93066 ANIKET MONTERROSO [facility] Venipuncture Venipuncture 14894 ASTRONOMOISMAEL [facility] [employer] Fitting Monofocals (Not For Aphakia) [employer] Fitting Monofocals (Not For Aphakia) 25517 EDGAR PARKER Habitual Rx OD -2.50 DS 20/20 OS -3.25 DS 20/20 PD: 63 Line Operator passes initial screening StandardsIAW Lynette 6130.03, 5.30 and 5.40 Anatomical Facial Characteristics : Frame Size: 52-20-150 Optical devices were ordered using SRTS Laboratory Specifications: 5A frame, M50, UPLC Insert ordered. [facility] Screening Test Of Visual Acuity, Quantitative, Bilateral Screening Test Of Visual Acuity, Quantitative, Bilateral [id number] 019 EDGAR PARKER Hepatitis A And Hepatitis B (Intramuscular Use) Adult Dosage Hepatitis A And Hepatitis B (Intramuscular Use) Adult Dosage 44053 HALEIGH BONILLA [facility] Immunization Administration One Vaccine Immunization Administration One Vaccine 10095 HALEIGH BONILLA [facility] Social History Combined list of available smoking, tobacco, and other social history from Department of Defense and Veterans Affairs facilities. Social History Type Response Date Comment Sour e Sex Representation Female (finding) 08/21/2020 Unknown Organization Tobacco Never-cigarette user Cigarette use:. Never-other tobacco user (not cigarettes) Other Tobacco use:. Ambulatory Pharmacy Sexual Orientation Ambula tory Pharmacy Gender identity Ambulator y Pharmacy This section is an empty social history section. [facility] Assessment and Plan Combined list of future care activities from Department of Defense and Veterans Affairs facilities (e.g., assessment and plan notes, appointments, orders, and referrals). Additional future care activities may be listed in the Plan of Care section. Result Assessment and Plan Date Source Assessment and Plan No data available for this section 11/10/2024 Ambulatory Pharmacy Functional Status Combined list of recent functional and cognitive assessments recorded at Department of Defense and Veterans Affairs ([facility]).[facility] Functional [place] Measurement (FIM) Scale: 1 = Total Assistance (Subject = 0% +), 2 = Maximal Assistance (Subject = 25% +), 3 = Moderate Assistance (Subject = 50% +), 4 = Minimal Assistance (Subject = 75% +), 5 = Supervision, 6 = Modified [place] (Device), 7 = Complete [place] (Timely, Safely). Assessment Date/Time Source Assessment Type Assessment Skill Assessment Score Assessment Details No data available for this section
[2024-11-10 12:30] LABS: Basophils Percent Auto 0.2 % (0.2-1.2); Eosinophils Absolute Auto 0.1 K/mm3 (0-0.3); Eosinophils Percent Auto 0.8 % (0-4.4); Hematocrit 36.2 % (37.0-47.0); Hemoglobin 11.9 g/dL (12.0-15.0); Immature Granulocyte Absolute 0.12 K/mm3 (0.00-0.031); Immature Granulocyte Percent A 1.4 % (0-0.5); Lymphocytes Absolute Auto 1.14 K/mm3 (0.9-3.2); Lymphocytes Percent Auto 12.9 % (18.3-44.2); Mean Corpuscular HGB Conc 32.9 g/dl (32-36); Mean Corpuscular Hemoglobin 30.1 pg (26-34); Mean Corpuscular Volume 91.6 fl (80-100); Mean Platelet Volume 10.4 fl (7.4-10.4); Monocytes Absolute Auto 0.4 K/mm3 (0.1-0.6); Neutrophils Absolute Auto 7.1 K/mm3 (1.3-6.7); Neutrophils Percent Auto 79.7 % (45.5-73.1); Platelet Count Result 168 k/mm3 (150-375); Red Blood Count 3.95 M/mm3 (4.2-5.4); Red Cell Distribution Width 11.8 % (11.5-14.5); White Blood Count 8.9 K/mm3 (4.5-10.0)
[2024-11-10 12:48] LABS: Glucose 1 Hour PP 50gm Dose 121 mg/dL
[2024-11-10 13:19] LABS: Syphilis IgG/IgM Antibody Non-Reactive (Nonreactive)
[2024-11-10 17:43] LABS: HIV 1/2 Ab P24 Ag Result Reactive (Negative)
[2024-11-13 10:16] LABS: HIV 1 2 Ag Ab 4th Gen w Rflxs Non-Reactive
== END 2024-11-10 10:22 | disposition home or self-care (01) ==
LOC: ANHGOSHLAB 10:22
PROVIDERS: PCP Obstetrics & Gynecology; Visit Provider Obstetrics & Gynecology
DX: Z34.90 Encounter for supervision of normal pregnancy, unspecified, unspecified trimester (principal); Z3A.00 Weeks of gestation of pregnancy not specified
CPT/HCPCS: 36415; 82947; 85025; 86593; 86703; 87389; G0432

== ENCOUNTER 2025-01-14 15:33 | Outpatient (CLI) | payer BC, OTHER, SELFPAY ==
--- NOTE | 2025-01-14 | ECHO_ITS ---
Patient Info Name: Sally Haney Age: 24 years : 2000 Gender: Female Ht: 65 in Wt: 205 lbs BSA: 2.10 m2 HR: 92 bpm BP: 117 / 89 mmHg Heart Rhythm: Sinus Rhythm Technical Quality: Good Exam Date: 01/14/2025 4:04 PM Patient Status: O Admit Date: 01/14/2025 Exam Type: CA echo doppler color flow Complete two-dimensional, color flow and Doppler transthoracic echocardiogram is performed. Avionics Systems Repairer: Luba Rhoades Summary 1. Complete two-dimensional, color flow and Doppler transthoracic echocardiogram is performed. 2. Ordering provider: Cash Duvall MD. 3. Left ventricular chamber dimension is normal. 4. Left ventricular systolic function is normal, estimated at 60-65. 5. There is no increased left ventricular wall thickness. 6. The left ventricular diastolic function is normal. 7. There is mild mitral valve regurgitation. 8. The mitral valve has thickened leaflets. 9. There is mild tricuspid valve regurgitation. 10. There is mild pulmonic regurgitation. 11. There is small pericardial effusion. Left Ventricle Left ventricular chamber dimension is normal. Left ventricular systolic function is normal, estimated at 60-65. There is no increased left ventricular wall thickness. The left ventricular diastolic function is normal. Right Ventricle Right ventricular chamber dimension is normal. Right ventricular systolic function is normal. Left Atria Left atrial chamber dimension is normal. Right Atria Right atrial chamber dimension is normal. Atrial Septum Intact interatrial septum visualized by color flow imaging. Aortic Valve The aortic valve is trileaflet. There is no aortic valve sclerosis. There is no aortic valve stenosis. There is trace aortic valve regurgitation. Pulmonic Valve The pulmonic valve is normal. There is no pulmonic valve stenosis. There is mild pulmonic regurgitation. Mitral Valve The mitral valve has thickened leaflets. There is no mitral valve stenosis. There is mild mitral valve regurgitation. Tricuspid Valve The tricuspid valve leaflets are normal. There is no significant tricuspid valve stenosis. There is mild tricuspid valve regurgitation. No pulmonary hypertension, estimated pulmonary arterial systolic pressure is 31 mmHg. Pericardium/Pleural The pericardium appears normal. There is small pericardial effusion. Inferior Vena Cava Normal inferior vena cava with >50% collapse upon inspiration consistent with normal right atrial pressure, 10 mmHg. Aorta The aortic root size at the sinus of Valsalva is normal. Left Ventricular Outflow Tract Name Value Normal LVOT 2D LVOT Diameter 2.1 cm LVOT Doppler LVOT Peak Velocity 81 cm/s LVOT Peak Gradient 3 mmHg LVOT Mean Gradient 1 mmHg LVOT VTI 14 cm LVOT VTI/AV VTI Ratio 0.6 LVOT Stroke Volume 49 ml LVOT CO 11.7 l/min LVOT CI 5.5 l/min/m2 Pulmonic Valve Name Value Normal PV Doppler PV Peak Velocity 87 cm/s PV Peak Gradient 3 mmHg Mitral Valve Name Value Normal MV Diastolic Function MV E Peak Velocity 63 cm/s MV A Peak Velocity 59 cm/s MV E/A 1.1 MV Decel Time (PW) 108 ms MV Annular TDI MV E/e' (Septal) 6.3 Tricuspid Valve Name Value Normal TV Regurgitation Doppler TR Peak Velocity 228 cm/s TR Peak Gradient 20 mmHg Estimated PAP/RSVP RA Pressure 10 mmHg <=5 PA Systolic Pressure 31 mmHg <36 RV Systolic Pressure 31 mmHg <36 TV Annular TDI TV Lateral Shannon s' Velocity 18.4 cm/s >=9.5 Aorta Name Value Normal Ascending Aorta Ao Root Diameter (MM) 2.8 cm Ao Root Diam Index (MM) 1.3 cm/m2 Aortic Valve Name Value Normal AV Doppler AV Peak Velocity 128 cm/s AV Peak Gradient 7 mmHg AV Mean Gradient 4 mmHg AV VTI 23 cm AV Area (Cont Eq VTI) 2.2 cm2 >=3.0 AV Area (Cont Eq Haseeb) 2.2 cm2 AV DI (Haseeb) 0.63 AV Regurgitation 2D LVOT Area 3.5 cm2 Ventricles Name Value Normal LV Dimensions 2D/MM IVS Diastolic Thickness (2D) 1.0 cm 0.6-1.0 LVID Diastole (2D) 4.8 cm 3.8-5.2 LVIW Diastolic Thickness (2D) 1.0 cm 0.6-0.9 LVID Systole (2D) 3.4 cm 2.2-3.5 LVOT Diameter 2.1 cm LV Mass (2D Cubed) 168.17 g 67.00-162.00 LV Mass Index (2D Cubed) 80 g/m2 43-95 Relative Wall Thickness (2D) 0.44 <=0.42 LV Fractional Shortening/Ejection Fraction 2D/MM LV Fractional Shortening (2D) 28 % 27-45 LV EF (2D Teichholz) 54 % LV Diastolic Volume (4C MOD) 163 ml LV EF (4C MOD) 67 % LV Diastolic Volume (2C MOD) 129 ml LV EF (2C MOD) 54 % LV Diastolic Volume (BP MOD) 147 ml 46-106 LV Diastolic Volume Index (BP MOD) 70 ml/m2 29-61 LV Systolic Volume (BP MOD) 59 ml 14-42 LV Systolic Volume Index (BP MOD) 28 ml/m2 8-24 LV EF (BP MOD) 60 % 54-74 LV Diastolic Length (4C) 7.7 cm LV Systolic Length (4C) 6.4 cm LV Stroke Volume (4C MOD) 108 ml RV Dimensions 2D/MM RVID Diastole (2D) 3.3 cm 2.1-3.5 Atria Name Value Normal LA Dimensions LA Dimension (MM) 3.2 cm 2.7-3.8 LA Volume (4C A-L) 45 ml LA Volume (BP A-L) 49 ml RA Dimensions RA Systolic Major Willards Length (4C) 5.0 cm 2.2-2.8 RA Area (4C) 14.1 cm2 <=18.0 Report Signatures
--- OUTSIDE RECORDS SUMMARY | 2025-01-14 15:36 | XMS_ITS | Clinical Summary ---
Author Organization [facility] Address [address] 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 This disclosure is being madepursuant to the Care Everywhere program and may not contain all information available regarding this patient. Last updated 18.[facility] Allergies No known active allergies Medications * This document contains information received from the source organization and may not represent a complete record from that organization. * Be aware that medications may not be up to date on this document. Alwaysverify current medications with the patient. 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 There are at least eight subtypes of EDS recognized with different clinical manifestations and inheritance patterns. The clinical findings include joint hypermobility, pain, and dislocations. It has an autosomal dominant inheritance pattern- therefore a 50% risk of transmission to the fetus. Maternal complications include premature rupture of membranes, premature labor due to cervical incompetence, pelvic pain and instability, wound dehiscence, and uterine and arterial rupture (in the vascular type). In the event of uterine or arterial rupture the consequences are potentially catastrophic with significant risk of mortality for mother and fetus. 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 Given she is now 36w, the main risks of hypermobile EDS have been avoided. Precipitous labor and PPH are still possibilities at the time of delivery. Genetic testing is recommended to confirm EDS and confirm the type of EDS as that will more accurately describe her risks. Recommendations: Echocardiogram to assess aortic root diameter. Padding of pressure points in labor. Increased risk for precipitous labor and PPH Estimated Date of Delivery Comme nts Yes 01/29/2025 Based on last me nstrual period of 04/24/2024 Encounters * This document contains information received from the source organization and may not represent a complete record from that organization. Date Type Department Care Team Description 01/07/2025 Telephone [facility] [address] [place] [id number] Marguerite Bruner, RN Question (Per Benjamin at Dr. Salazar [facility] is not doing echo cardiograms so they won't be able to order one on patient. Dr. Salazar is asking if we can order it. Orders placed. ) 01/05/2025 10:25 AM CDT - 01/05/2025 11:59 PM CDT Hospital Encounter [facility] [address] [place] [phone] Cash Duvall MD Discharge Disposition: Home or Self Care 01/05/2025 10:23 AM CDT - 01/05/2025 10:24 AM CDT Hospital Encounter [facility] [address] [place] [phone] Cash Duvall MD Discharge Disposition: Home or Self Care from Last 3 Months Family History Medical History Relation Name Comments Other - Cardiac Father Cancer - Colon Maternal Grandmother Relation Name Status Comments Father Maternal Grandmother Social History Tobacco Use Types Packs/Day Years Used Date Smoking Tobacco: Never Smokeless Tobacco: Never Tobacco Cessation:Counseling Given: Not Answered Alcohol Use Standard Drinks/Week Comments Not Currently 0 (1 standard drink = 0.6 oz pur e alcohol) Estimated Date of Delivery Comme nts Yes 01/29/2025 Based on last me nstrual period of 04/24/2024 Sex and Gender Information Value Date Recorded Sex Assigned at Not on file Legal Sex Female 11:54 AM CDT Gender Identity Female 10/30/2017 2:56 PM CDT Sexual Orientation Not on file Last Filed Vital Signs Vital Sign Reading Time Taken Comments Blood Pressure 127/74 01/05/2025 11:17 AM CDT Pulse 93 01/05/2025 11:17 AM CDT Temperature - - Respiratory Rate - - Oxygen Saturation - - Inhaled Oxygen Concentration - - Weight 92.5 kg (204 lb) 01/05/2025 11:17 AM CDT Height 167.6 cm (5' 6) 01/05/2025 11:17 AM CDT Body Mass Index 32.93 01/05/2025 11:17 AM CDT Plan of Treatment Health Maintenance Due Date Last Done Comments HIV SCREENING 09/06/2015 HPV VACCINE (1 - 3-dose series) 09/06/2015 CHLAMYDIA/GONORRHEA SCREENING 2016 HEPATITIS C SCREENING 09/01/2018 DTAP/TDAP/TD VACCINES (1 - Tdap) 09/06/2019 HEPATITIS B VACCINE (1 of 3 - 19+ 3-dose series) 09/06/2019 COVID-19 VACCINE (1 - 2023-2 5 season) 2024 DEPRESSION SCREENING 06/02/2024 OB-ONE HOUR GLUCOSE 10/23/2024 OB-RHOGAM INJECTION 11/06/2024 OB-GROUP B STREP SCREEN 12/25/2024 INFLUENZA VACCINE (#1) 2025 , 03/20/2022, 04/13/2019 ZOSTER VACCINE (1 of 2) 2050 OB-TDAP CURRENT Completed 2024, 12/17/2018, 12/31/2014 HIB VACCINE Aged Out No longer eligi ble based on patient's age to complete this topic MENINGOCOCCAL (Group B) VACCINE SHARED DECISION-MAKING Aged Out No longer eligible based on patient's age to complete this topic MENINGOCOCCAL GROUPS A/C/Y/W VACCINE Aged Out No longer eligible b ased on patient's age to complete this topic PNEUMOCOCCAL VACCINE Aged Out No long er eligible based on patient's age to complete this topic Respiratory Syncytial Virus (RSV) Vaccine Pt: or over 60 yrs (No Doses Required) Completed Procedures Procedure Name Priority Date/Time Associated Diagnosis Comments SONOGRAM - COMPLETE Routine 01/05/2025 1 0:34 AM CDT Ana María-Danlos syndrome (HCC) Encounter for ultrasound to assess growth ([facility]) 36 weeks gestation of ([facility]) from Last 3 Months Results * Sonogram - Complete (01/05/2025 10:34 AM CDT) Linked Results Indication ======== Ana María Danlos syndrome anatomy evaluation History ====== OB History 1 Lab Tests Test Date Result NIPT low , Low risk, Female (per patient) Maternal Assessment Physical Exam Height 168 cm, 5 ft 6 in. Weight 93 kg, 204 lb. Initial weight 81 kg, 178 lb. BMI 32.93 kg/m . Initial BMI 28.73 kg/m . Weight gain 12 kg, 26 lb Method ====== Transabdominal ultrasound. View: Suboptimal view: limited by late gestational age ========= Rosario . Number of fetuses: 1 Dating ====== Date Details Gest. age LYUBOV LMP 04/24/2024 36 w + 4 d 01/29/2025 U/S 01/05/2025 based upon AC, BPD, Femur, HC 36 w + 5 d 01/28/2025 Assigned dating based on the LMP, selected on 01/05/2025 36 w + 4 d 01/29/2025 General Evaluation Cardiac activity present. FHR 145 bpm. Presentation: cephalic Placenta: Placental site: posterior Umbilical cord: Cord vessels: 3 vessel cord. Insertion site: normal insertion Amniotic fluid: Amount of AF: normal. MVP 4.3 cm. VINCENT 12.8 cm. Q1 2.6 cm, Q2 2.7 cm, Q3 4.3 cm, Q4 3.2 cm Biometry BPD 89.9 mm 36w 3d 58% Hadlock HC 327.5 mm 37w 1d 36% Hadlock Cerebellum tr 51.4 mm AC 324.4 mm 36w 2d 56% Hadlock Femur 72.2 mm 37w 0d 58% Hadlock Humerus 64.1 mm 37w 1d 85% Carmen HC / AC 1.01 -/- Hadlock Weight Calculation: EFW 2,984 g 55% Hadlock EFW (lb,oz) 6 lb 9 oz EFW by Hadlock ([id number]-FL) appropriate Growth Overview Exam date GA BPD (mm) HC (mm) AC (mm) FL (mm) HL (mm) EFW (g) 01/05/2025 36w 4d 89.9 58% 327.5 36% 324.4 56% 72.2 58% 64.1 85% 2984 55% Anatomy The following structures appear normal: Head / Neck Cranium. Midline falx. Cavum septi pellucidi. Cerebellum. Thalami. Face Lips. Profile. Nose. Nasal bone. Orbits. Heart / Thorax RVOT view. 3-vessel view. Situs. Bicaval view. Diaphragm. Abdomen Stomach. Kidneys. Bladder. Extremities / Skeleton Right arm. Right leg. The following structures could not be adequately visualized: Head / Neck Lateral ventricles. Choroid plexus. Cisterna magna. Heart / Thorax 4-chamber view. LVOT view. 7-lvevlj-ueedyxw view. Aortic arch view. Ductal arch view. Great vessels. Right lung. Left lung. Abdomen Cord insertion. Bowel. Genitals. Spine Cervical spine. Thoracic spine. Lumbar spine. Sacral spine. Extremities / Skeleton Hands. Left arm. Feet. Left leg. Maternal Structures Right Ovary Normal Left Ovary Normal Impression ========= Single live intrauterine at 36w 4d in cephalic presentation The LYUBOV is 01/29/2025 Fetus measures 36w 5d which is appropriate for established gestational age (EFW 55%, AC 56%) The amniotic fluid volume appears normal No major malformations or aneuploidy markers were seen within the limitations of ultrasound. However, the anatomic survey is incomplete. Comment ======== ultrasound alone cannot detect all structural, genetic, or functional , placental, or maternal abnormalities Follow-up ======== Follow up as clinically indicated. [facility] PACS Anatomical Region Laterality Modality Other 01/05/2025 10:3 4 AM CDT Cash Duvall MD [facility] ORDERABLES Edited Result - Final from Last 3 Months Insurance [place] [address] [place] [address] [employer] [place]
--- OUTSIDE RECORDS SUMMARY | 2025-01-14 15:36 | XMS_ITS | Continuity of Care Document ---
Author Name [facility] Organization [facility] Care Team Providers Care Nanotechnologist Name Role Phone [facility] Unavailable Unavailable Problems Combined list of problems [...] Site Reaction Lot Number CVX Code Drug Microbiology Coordinator Status Comments Source measles/mumps /rubella virus vaccine 2021 Louis card Arm, left upper [id number] Merck [employer] Company Inc complet ed measles/m umps/rube lla virus vaccine 03/20/22 Given 0108A-A Bryan Randall influenza virus vaccine, inactivated 2021 Louis card Shoul anuel, left (delt oid) [id number] 150 ID Xobni complet ed influenza virus vaccine, inactivat ed 03/20/22 Given 0108A-A Bryan Awan tSally hepatitis A adult vaccine 2019 [id number] 52 Unknown complet ed hepatitis A adult vaccine 06/12/19 Given Ambulat ory Pharmac y hepatitis B adult vaccine 2019 UNK 43 Unknown complet ed hepatitis B adult vaccine 06/12/19 Given Ambulat ory Pharmac y influenza, seasonal, injectable 2018 [id number] 141 Seqirus complet ed influenza , seasonal, injectabl e 04/13/19 Given Ambulat ory Pharmac y hepatitis A-hepatitis B vaccine 2018 [id number] GlaxoSmithKli ne complet ed hepatitis A-hepatit is B vaccine 02/17/19 Given Ambulat ory Pharmac y meningococcal A,C,Y,W-135 (MCV4P) 2018 [id number] 114 sanofi pasteur complet ed meningoco ccal A,C,Y,W-1 35 (MCV4P) 12/17/18 Given Ambulat ory Pharmac y hepatitis A-hepatitis B vaccine 2018 [id number] 104 GlaxoSmithKli ne complet ed hepatitis A-hepatit is B vaccine 12/17/18 Given Ambulat ory Pharmac y poliovirus vaccine, inactivated 2018 [id number] 10 sanofi pasteur complet ed polioviru s vaccine, inactivat ed 12/17/18 Given Ambulat ory Pharmac y tetanus, diphtheria, acellular pertu is 2018 [id number] 115 GlaxoSmithKli ne complet ed tetanus, diphtheri a, acellular pertussis 12/17/18 Given Ambulat ory Pharmac y adenovirus vaccine, live 2018 [id number] 4 143 Teva Pharmaceutica ls complet ed [...] ory Pharmac y poliovirus vaccine, inactivated 2018 [id number] 10 sanofi pasteur complet ed polioviru s vaccine, inactivat ed 12/17/18 Given Ambulat ory Pharmac y adenovirus vaccine, live 2018 [id number] 4 143 Teva Pharmaceutica ls complet ed adenoviru s vaccine, live 12/17/18 Given Ambulat ory Pharmac y meningococcal A,C,Y,W-135 (MCV4P) 2018 [id number] 114 sanofi pasteur complet ed meningoco ccal A,C,Y,W-1 35 (MCV4P) 12/17/18 Given Ambulat ory Pharmac y measles, mumps and rubella virus vaccine 1 2018 UNK 03 Unknown (UNK) Not Given measles, mumps and rubella virus vaccine DoD poliovirus vaccine, inactivated 1 2018 [id number] 10 Sanofi Pasteur (PMC) complet ed polioviru s vaccine, inactivat ed DoD varicella virus vaccine 1 2018 UNK 21 Unknown (UNK) Not Given varicella virus vaccine DoD hepatitis A and hepatitis B vaccine 1 2018 [id number] 104 EuclidKline (SKB) complet ed hepatitis A and hepatitis B vaccine DoD meningococcal polysaccharid e (groups A, C, Y and W-135) diphtheria toxoid conjugate vaccine (MCV4P) 1 2018 [id number] 114 Sanofi Pasteur (PMC) complet ed meningoco ccal polysacch aride (groups A, C, Y and W-135) diphtheri a toxoid conjugate vaccine (MCV4P) DoD tetanus toxoid, reduced diphtheria toxoid, and acellular pertu is vaccine, adsorbed 2018 [id number] 115 EuclidKline (SKB) complet ed tetanus toxoid, reduced diphtheri a toxoid, and acellular pertussis vaccine, adsorbed DoD Adenovirus, type 4 and type 7, live, oral 1 2018 [id number] 4 143 Encover ([facility]) complet ed Adenoviru s, type 4 and [...] Performed At: 1 [facility] [address] [place] [address] DESIREE SYED PHD Ph:[phone] 0108A-AM Jerrica Zavala Infectiou s Disease Source of Test.LC PostDepSt orage (04/07/23 9:00 AM) 04/07 N 0108A-AM C Bryan Zavala Hematolog y G-6-PD, [...] a hemolytic event. Performed At: 01 [facility] [place] [address] [place], [place] [id number] Katelin Medellin MD Ph:[phone] Performed At: [address] [id number] Min Villalobos MD Ph:[phone] 0108A-AM C Bryan Zavala Hematolog y [...] Blood Pressure 103 mm[Hg] 04/08/20 23 19:54:00 0108A-[facility] Bryan Julio Diastolic Blood Pressure 70 mm[Hg] 023 19:54:00 0108A-[facility] Bryan Julio Peripheral Pulse Rate 76 bpm 04/08/2023 19:54:00 0108A-[facility] Bryan Julio Mean Arterial Pressure, Cuff (Calc) 81 mm[Hg] 04/08/2023 19:54:00 0108A-[facility] Bryan Julio Temperature Oral 37.1 Ayaka 04/08/2023 19:54:00 0108A-[facility] Bryan Julio Peripheral Pulse Rate 89 bpm 04/07/2023 14:30:00 [facility] Jul[facility] Temperature Temporal Artery 36.4 Ayaka 04/07/2023 14:30:00 [facility] Julio Systolic Blood Pressure 122 mm[Hg] 04/07/20 23 14:30:00 0108A-NANCY Julio Diastolic Blood Pressure 82 mm[Hg] 023 14:30:00 0108A-[facility] Bryan Julio Systolic Blood Pressure 118 mm[Hg] 03/20/20 22 14:01:00 0108A-[facility] Bryan Julio Diastolic Blood Pressure 76 mm[Hg] 022 14:01:00 0108A-[facility] Bryan Julio Temperature Temporal Artery 36.1 Ayaka 03/20/2022 14:01:00 0108A-[facility] Bryan Julio Peripheral Pulse Rate 86 bpm 03/20/2022 14:01:00 [place] Bryan Julio Encounters Combined list of: 1) Encounters from Department of Veterans Affairs facilities going backup to the last 18 months, not all VA inpatient encounters are included; 2) Encounters from the Department of Defense facilities going backup to 280 months. Location Location Details Encounter Type Encounter Number Reason For Visit Attending Provider ADM Date DC Date Status Disposition [place] OUTPATIENT [id number] Notes Entered by: RADHA OZUNA 15 Dec 2018 0612 ------- ------- ------- ------- -- [id number] DAY 1 594 DEEPIKAFloyd ISMAEL CASTROBilly 12/15 Released [place]/o Limitations [place] OUTPAT[place] [id number] Notes Entered by: Anastasiia MONTOYA 15 Dec 2018 0716 ------- ------- ------- ------- -- Optomet ry EDGAR Yoder 12/15 [place]ased [place]itations [place] OUTPATIENT [id number] Notes Entered by: Anastasiia MONTERROSO 16 Dec 2018 0944 ------- ------- ------- ------- -- 594 ANIKET MONTERROSO 12/16 [place]ased [place] Limitations [place] OUTPAT[place] [id number] Notes Entered by: ELI ROSALES 17 Dec 2018 0640 ------- ------- ------- ------- -- [id number] DAY 3 594 ALLAN NG 12/17 Released w/o Limitations [place] OUTPATIENT [id number] Notes Entered by: RADHA OZUNA 17 Feb 2019 0627 ------- ------- ------- ------- -- E CO 1-48 HALEIGH LEACH 02/17 Released w/o Limitations [place] Procedures Combined list of: [...] INJECTIONS); 1 VACCINE (SINGLE OR COMBINATION VACCINE/TOXOID) [facility] ADENOVIRUS VACCINE, TYPE 7, LIVE, FOR ORAL USE [facility] AUDIOMETRIC TESTING OF GROUPS [facility] SCREENING TEST OF VISUAL ACUITY, QUANTITATIVE, BILATERAL [facility] COLLECTION OF VENOUS BLOOD BY VENIPUNCTURE DoD Vaccines Viral Polio, Inactivated (Salk) Vaccines Viral Polio, Inactivated (Salk) [address] BERENICE [facility] Supervised Injection Intramuscular Antibiotic Supervised Injection Intramuscular Antibiotic [address] [facility] BERENICE [facility] Vaccines Adenovirus Type 4 Live, For Oral Use Vaccines Adenovirus Type 4 Live, For Oral Use [address] [facility] BERENICE [facility] Vaccines Adenovirus Type 7 Live, For Oral Use Vaccines Adenovirus Type 7 Live, For Oral Use [address] [facility] BERENICE [facility] Meningococcal Polysacch Diphtheria Toxoid Conjugate Vaccine [address] [place] [address] [facility] Immunization Administration One Vaccine Immunization Administration One Vaccine [address] [place] [address] [facility] Immunization Administration Each Additional Vaccine Immunization Administration Each Additional Vaccine [address] [place] [address] Hepatitis A And Hepatitis B (Intramuscular Use) Adult Dosage Hepatitis A And Hepatitis B (Intramuscular Use) Adult Dosage [address] [place] [address] [facility] Tdap Vaccine Tdap Vaccine [address] [place] [address] [facility] Audiometry Group Testing Audiometry Group Testing [address] [facility] ANIKET MONTERROSO [facility] Venipuncture Venipuncture 72222 ASTRONOMISMAEL Barrientos [facility] [employer] Fitting Monofocals (Not For Aphakia) [employer] Fitting Monofocals (Not For Aphakia) [address] EDGAR PARKER Habitual Rx OD -2.50 DS 20/20 OS -3.25 DS 20/20 PD: 63 Fiscal Services Manager passes initial screening StandardsIAW Lynette 6130.03, 5.30 and 5.40 Anatomical Facial Characteristics : Frame Size: 52-20-150 Optical devices were ordered using [employer] Laboratory Specifications: 5A frame, M50, UPLC Insert ordered. [facility] Screening Test Of Visual Acuity, Quantitative, Bilateral Screening Test Of Visual Acuity, Quantitative, Bilateral [id number] 019 EDGAR PARKER Hepatitis A And Hepatitis B (Intramuscular Use) Adult Dosage Hepatitis A And Hepatitis B (Intramuscular Use) Adult Dosage 06180 HALEIGH BONILLA Immunization Administration One Vaccine Immunization Administration One Vaccine 35313 HALEIGH BONILLA DoD Social History Combined list of available smoking, tobacco, and other social history from Department of Defense and Veterans Affairs facilities. Social History Type Response Date Comment Sourc e Sex Representation Female (finding) 08/21/2020 Unknown Organization Tobacco Never-cigarette user Cigarette use:. Never-other tobacco user (not cigarettes) Other Tobacco use:. Ambulatory Pharmacy Sexual Orientation Ambula tory Pharmacy Gender identity Ambulator y Pharmacy This section is an empty social history section. [facility] Assessment and Plan Combined list of future care activities from Department of Defense and Veterans Affairs facilities (e.g., assessment and plan notes, appointments, orders, and referrals). Additional future care activities may be listed in the Plan of Care section. Result Assessment and Plan Date Source Assessment and Plan No data available for this section 01/14/2025 Ambulatory Pharmacy Functional Status Combined list of recent functional and cognitive assessments recorded at Department of Defense and Veterans Affairs ([facility]).[facility] Functional Lejunior Measurement (FIM) Scale: 1 = Total Assistance (Subject = 0% +), 2 = Maximal Assistance (Subject = 25% +), 3 = Moderate Assistance (Subject = 50% +), 4 = Minimal Assistance (Subject = 75% +), 5 = Supervision, 6 = Modified Lejunior (Device), 7 = Complete Lejunior (Timely, Safely). Assessment Date/Time Source Assessment Type Assessment Skill Assessment Score Assessment Details No data available for this section
== END 2025-01-14 15:34 | disposition home or self-care (01) ==
LOC: ANHCARD 15:34
PROVIDERS: PCP Student in an Organized Health Care Education/Training Program
DX: Q79.60 Ehlers-Danlos syndrome, unspecified (principal); I08.3 Combined rheumatic disorders of mitral, aortic and tricuspid valves
CPT/HCPCS: 93306

== ENCOUNTER 2025-01-22 17:07 | Outpatient (CLI) | payer BC, OTHER, SELFPAY ==
--- OUTSIDE RECORDS SUMMARY | 2025-01-22 17:11 | XMS_ITS | Continuity of Care Document ---
Author Name [facility] Organization [facility] Care Team Providers Care Bed Laster Name Role Phone [facility] Unavailable Unavailable Problems Combined list of problems [...] Site Reaction Lot Number CVX Code Drug Ear Nose Throat Surgeon Status Comments Source measles/mumps /rubella virus vaccine 2021 Lousi card Arm, left upper [id number] Merck [employer] Company Inc complet ed measles/m umps/rube lla virus vaccine 03/20/22 Given 0108A-A Bryan Randall influenza virus vaccine, inactivated 2021 Louis card Shoul anuel, left (delt oid) [id number] 150 ID [employer] complet ed influenza virus vaccine, inactivat ed 03/20/22 Given 0108A-A Bryan Awan tSally hepatitis A adult vaccine 2019 UNK 52 Unknown complet ed hepatitis A adult vaccine 06/12/19 Given Ambulat ory Pharmac y hepatitis B adult vaccine 2019 UNK 43 Unknown complet ed hepatitis B adult vaccine 06/12/19 Given Ambulat ory Pharmac y influenza, seasonal, injectable 2018 [id number] 141 Seqirus complet ed influenza , seasonal, injectabl e 04/13/19 Given Ambulat ory Pharmac y hepatitis A-hepatitis B vaccine 2018 [id number] 104 GlaxoSmithKli ne complet ed hepatitis A-hepatit is B vaccine 02/17/19 Given Ambulat ory Pharmac y meningococcal A,C,Y,W-135 (MCV4P) 2018 [id number] 114 sanofi pasteur complet ed meningoco ccal A,C,Y,W-1 35 (MCV4P) 12/17/18 Given Ambulat ory Pharmac y hepatitis A-hepatitis B vaccine 2018 [id number] 104 GlaxoSmithKli ne complet ed hepatitis A-hepatit is B vaccine 12/17/18 Given Ambulat ory Pharmac y poliovirus vaccine, inactivated 2018 [id number] 10 sanofi pasteur complet ed polioviru s vaccine, inactivat ed 12/17/18 Given Ambulat ory Pharmac y tetanus, diphtheria, acellular pertu is 2018 [id number] 115 GlaxoSmithKli ne complet ed tetanus, diphtheri a, acellular pertussis 12/17/18 Given Ambulat ory Pharmac y adenovirus vaccine, live 2018 [id number] 4 143 Teva Pharmaceutica ls complet ed [...] ory Pharmac y poliovirus vaccine, inactivated 2018 [id number] 10 sanofi pasteur complet ed polioviru s vaccine, inactivat ed 12/17/18 Given Ambulat ory Pharmac y adenovirus vaccine, live 2018 [id number] 4 143 Teva Pharmaceutica ls complet ed adenoviru s vaccine, live 12/17/18 Given Ambulat ory Pharmac y meningococcal A,C,Y,W-135 (MCV4P) 2018 [id number] 114 sanofi pasteur complet ed meningoco ccal A,C,Y,W-1 35 (MCV4P) 12/17/18 Given Ambulat ory Pharmac y measles, mumps and rubella virus vaccine 1 2018 UNK 03 Unknown (UNK) Not Given measles, mumps and rubella virus vaccine DoD poliovirus vaccine, inactivated 1 2018 [id number] 10 Sanofi Pasteur (PMC) complet ed polioviru s vaccine, inactivat ed DoD varicella virus vaccine 1 2018 UNK 21 Unknown (UNK) Not Given varicella virus vaccine DoD hepatitis A and hepatitis B vaccine 1 2018 [id number] 104 Protective SystemsKline (SKB) complet ed hepatitis A and hepatitis B vaccine DoD meningococcal polysaccharid e (groups A, C, Y and W-135) diphtheria toxoid conjugate vaccine (MCV4P) 1 2018 [id number] 114 Sanofi Pasteur (PMC) complet ed meningoco ccal polysacch aride (groups A, C, Y and W-135) diphtheri a toxoid conjugate vaccine (MCV4P) DoD tetanus toxoid, reduced diphtheria toxoid, and acellular pertu is vaccine, adsorbed 2018 525NP 115 Protective SystemsKline (SKB) complet ed tetanus toxoid, reduced diphtheri a toxoid, and acellular pertussis vaccine, adsorbed DoD Adenovirus, type 4 and type 7, live, oral 1 2018 [id number] 4 143 [place] ([facility]) complet ed Adenoviru s, type 4 and [...] Performed At: 1 [facility] [address] [facility] [address] [place] [address] DESIREE SYED PHD Ph:[phone] 0108A-AM Jerrica Zavala Infectiou s Disease [...] a hemolytic event. Performed At: 01 [facility] [place] [address] [place], [place] [id number] Katelin Medellin MD Ph:[phone] Performed At: [address] [id number] Min Villalobos MD Ph:[phone] 0108A-AM C Bryan Zavala Hematolog y [...] Blood Pressure 103 mm[Hg] 04/08/20 23 19:54:00 0108[facility] Bryan Julio Diastolic Blood Pressure 70 mm[Hg] 023 19:54:00 0108[facility] Bryan Julio Peripheral Pulse Rate 76 bpm 04/08/2023 19:54:00 0108[facility] Bryan Julio Mean Arterial Pressure, Cuff (Calc) 81 mm[Hg] 04/08/2023 19:54:00 0108[facility] Bryan Julio Temperature Oral 37.1 Ayaka 04/08/2023 19:54:00 0108[facility] Bryan Julio Peripheral Pulse Rate 89 bpm 04/07/2023 14:30:00 [facility]108[facility] Bryan Julio Temperature Temporal Artery 36.4 Ayaka 04/07/2023 14:30:00 [facility]108[facility] Bryan Julio Systolic Blood Pressure 122 mm[Hg] 04/07/20 23 14:30:00 0108A-NANCY Julio Diastolic Blood Pressure 82 mm[Hg] 023 14:30:00 0108[facility] Bryan Julio Systolic Blood Pressure 118 mm[Hg] 03/20/20 22 14:01:00 0108[facility] Bryan Julio Diastolic Blood Pressure 76 mm[Hg] 022 14:01:00 0108[facility] Bryan Julio Temperature Temporal Artery 36.1 Ayaka 03/20/2022 14:01:00 [facility]108[facility] Bryan Julio Peripheral Pulse Rate 86 bpm 03/20/2022 14:01:00 [facility] Bryan Julio Encounters Combined list of: 1) Encounters from Department of Veterans Affairs facilities going backup to the last 18 months, not all VA inpatient encounters are included; 2) Encounters from the Department of Defense facilities going backup to 280 months. Location Location Details Encounter Type Encounter Number Reason For Visit Attending Provider ADM Date DC Date Status Disposition Source [place] OUTPATIENT [id number] 1 Notes Entered by: RADHA OZUNA 15 Dec 2018 0612 ------- ------- ------- ------- -- [id number] DAY 1 594 DEE[address]Floyd ISMAEL CASTROBilly 12/15 Released w/o Limitations [place] [id number] Notes Entered by: Anastasiia MONTOYA 15 Dec 2018 0716 ------- ------- ------- ------- -- Optomet ry EDGAR Yoder 12/15 Released w/o Limitations [place] OUTPATIENT [id number] Notes Entered by: Anastasiia MONTERROSO 16 Dec 2018 0944 ------- ------- ------- ------- -- 594 ANIKET MONTERROSO 12/16 Released w/o Limitations [place] [id number] Notes Entered by: ELI ROSALES 17 Dec 2018 0640 ------- ------- ------- ------- -- [id number] DAY 3 594 ALLAN NG 12/17 Released w/o Limitations [place] [id number] 5 Notes Entered by: RADHA OZUNA 17 Feb 2019 0627 ------- ------- ------- ------- -- E CO 1-48 HALEIGH LEACH 02/17 Released w/o Limitations [place] Procedures Combined list of: [...] INJECTIONS); 1 VACCINE (SINGLE OR COMBINATION VACCINE/TOXOID) [facility] ADENOVIRUS VACCINE, TYPE 7, LIVE, FOR ORAL USE [facility] AUDIOMETRIC TESTING OF GROUPS [facility] SCREENING TEST OF VISUAL ACUITY, QUANTITATIVE, BILATERAL [facility] COLLECTION OF VENOUS BLOOD BY VENIPUNCTURE DoD Vaccines Viral Polio, Inactivated (Salk) Vaccines Viral Polio, Inactivated (Salk) 20153 BERENICE [facility] Supervised Injection Intramuscular Antibiotic Supervised Injection Intramuscular Antibiotic 42223 [facility] BERENICE [facility] Vaccines Adenovirus Type 4 Live, For Oral Use Vaccines Adenovirus Type 4 Live, For Oral Use 75927 [facility] BERENICE [facility] Vaccines Adenovirus Type 7 Live, For Oral Use Vaccines Adenovirus Type 7 Live, For Oral Use 14485 [facility] BERENICE [facility] Meningococcal Polysacch Diphtheria Toxoid Conjugate Vaccine [address] [place] [address] [facility] Immunization Administration One Vaccine Immunization Administration One Vaccine [address] [place] [address] [facility] Immunization Administration Each Additional Vaccine Immunization Administration Each Additional Vaccine [address] [place] [address] Hepatitis A And Hepatitis B (Intramuscular Use) Adult Dosage Hepatitis A And Hepatitis B (Intramuscular Use) Adult Dosage [address] [place] [address] [facility] Tdap Vaccine Tdap Vaccine [address] [place] [address] [facility] Audiometry Group Testing Audiometry Group Testing 67132 [facility] ANIKET MONTERROSO [facility] Venipuncture Venipuncture 59583 ASTRONOMISMAEL Barrientos [facility] [employer] Fitting Monofocals (Not For Aphakia) [employer] Fitting Monofocals (Not For Aphakia) 51489 EDGAR PARKER Habitual Rx OD -2.50 DS 20/20 OS -3.25 DS 20/20 PD: 63 Wood Pattern Maker passes initial screening StandardsIAW Lynette 6130.03, 5.30 and 5.40 Anatomical Facial Characteristics : Frame Size: 52-20-150 Optical devices were ordered using [employer] Laboratory Specifications: 5A frame, M50, UPLC Insert ordered. [facility] Screening Test Of Visual Acuity, Quantitative, Bilateral Screening Test Of Visual Acuity, Quantitative, Bilateral 75817 019 EDGAR PARKER Hepatitis A And Hepatitis B (Intramuscular Use) Adult Dosage Hepatitis A And Hepatitis B (Intramuscular Use) Adult Dosage 74739 [facility] [place] Immunization Administration One Vaccine Immunization Administration One Vaccine 57556 [facility]ILL[facility] DoD Social History Combined list [...] section is an empty social history section. [facility] Assessment and Plan Combined list of future care activities from Department of Defense and Veterans Affairs facilities (e.g., assessment and plan notes, appointments, orders, and referrals). Additional future care activities may be listed in the Plan of Care section. Result Assessment and Plan Date Source Assessment and Plan No data available for this section 01/22/2025 Ambulatory Pharmacy Functional Status Combined list of recent functional and cognitive assessments recorded at Department of Defense and Veterans Affairs (VA).VA Functional [place] Measurement (FIM) Scale: 1 = Total Assistance (Subject = 0% +), 2 = Maximal Assistance (Subject = 25% +), 3 = Moderate Assistance (Subject = 50% +), 4 = Minimal Assistance (Subject = 75% +), 5 = Supervision, 6 = Modified Reading (Device), 7 = Complete Reading (Timely, Safely). Assessment Date/Time Source Assessment Type Assessment Skill Assessment Score Assessment Details No data available for this section
[2025-01-22 17:30] VITALS: BP 136/89; PULSE 93
[2025-01-22 17:36] VITALS: BMI 34.0
[2025-01-22 17:39] LABS: Hematocrit 31.5 % (37.0-47.0); Hemoglobin 10.4 g/dL (12.0-15.0); Immature Granulocyte Percent A 0.7 % (0-0.5); Lymphocytes Absolute Auto 1.69 K/mm3 (0.9-3.2); Mean Corpuscular HGB Conc 33.0 g/dl (32-36); Mean Corpuscular Hemoglobin 28.3 pg (26-34); Mean Corpuscular Volume 85.6 fl (80-100); Nucleated Red Blood Cells Absolute Auto 0.000 K/mm3 (0.0-0.012); Nucleated Red Blood Cells Perc 0.0 % (0.0-0.2); Platelet Count Result 184 k/mm3 (150-375); Red Blood Count 3.68 M/mm3 (4.2-5.4); White Blood Count 8.1 K/mm3 (4.5-10.0)
[2025-01-22 17:41] LABS: Add Urine Microscopic? YES; Appearance Urine Cloudy (Clear); Glucose Urine UA Negative (Negative); Leukocyte Esterase Ur 1+ LEU/UL (Negative); Nitrate Urine Negative (Negative); Non Pathogenic Casts 0-2; Specific Grav Ur 1.011 (1.001-1.035)
[2025-01-22 17:46] VITALS: BP 122/80; PULSE 87
[2025-01-22 17:47] LABS: Alanine Aminotransferase 20 U/L (6-35); Albumin Level 3.5 g/dL (3.5-5.1); Alkaline Phosphatase 154 U/L (38-126); Anion Gap 6 mmol/L (4-12); Aspartate Amino Transferase 25 U/L (14-36); Bilirubin,Total 0.3 mg/dL (0.2-1.3); Blood Urea Nitrogen 5 mg/dL (7-17); Calcium 9.3 mg/dL (8.4-10.2); Carbon Dioxide 22 mmol/L (22-30); Chloride 107 mmol/L (98-107); Estimated CRCL calculation 132 ml/min; Estimated Glomerular Filt Rate > 60; Glucose 102 mg/dL (65-110); Potassium 3.5 mmol/L (3.4-5.0); Sodium 135 mmol/L (137-145); Total Protein 6.4 g/dL (6.3-8.2); Total Protein Urine Random 15 mg/dL; Ur Ttl Prot Creatinine Ratio 0.18 mg/mg (0-0.20); Uric Acid 5.6 mg/dL (2.5-7.5)
--- NOTE | 2025-01-22 17:51 | PC.NURSE ---
Called Dr. Champion with pt status. Admitted for complaints of elevated BP and increased swelling. Informed of BPs, lab results and reactive tracing. May D/C home to follow up in office at scheduled appointment this week.
== END 2025-01-22 17:55 | disposition home or self-care (01) ==
LOC: ANHOBOP 17:10 → ANHOBPP 17:11
PROVIDERS: Obstetrics & Gynecology; PCP Student in an Organized Health Care Education/Training Program; Visit Provider Obstetrics & Gynecology
DX: O13.9 Gestational [pregnancy-induced] hypertension without significant proteinuria, unspecified trimester (principal); O26.899 Other specified pregnancy related conditions, unspecified trimester; R60.9 Edema, unspecified; Z3A.00 Weeks of gestation of pregnancy not specified
CPT/HCPCS: 36415; 59025; 80053; 81001; 82570; 84156; 84550; 85025; 99199

== ENCOUNTER 2025-01-24 17:58 | Outpatient (CLI) | payer BC, OTHER, SELFPAY ==
[2025-01-24] VITALS (14 sets, daily range): BP systolic 128–129; BP diastolic 80; PULSE 86–107; TEMP 36.6; O2SAT 99–100; BMI 34.7
--- NOTE | 2025-01-24 17:58 | PC.NURSE ---
Pt arrives to unit with elevated blood pressures in the office.
--- OUTSIDE RECORDS SUMMARY | 2025-01-24 18:05 | XMS_ITS | Continuity of Care Document ---
Author Name [facility] Organization [facility] Care Team Providers Care Seed Analyst Name Role Phone [facility] Unavailable Unavailable Problems Combined list of problems [...] Site Reaction Lot Number CVX Code Drug Vp Informatics Status Comments Source measles/mumps /rubella virus vaccine 2021 Louis card Arm, left upper [id number] Merck & Company Inc complet ed measles/m umps/rube lla virus vaccine 03/20/22 Given 0108A-A Bryan Randall influenza virus vaccine, inactivated 2021 Louis card Shoul anuel, left (delt oid) [id number] 150 ID [employer] complet ed influenza virus vaccine, inactivat ed 03/20/22 Given 0108A-A Bryan Awan tSally hepatitis A adult vaccine 2019 UNK 52 Unknown complet ed hepatitis A adult vaccine 06/12/19 Given Ambulat ory Pharmac y hepatitis B adult vaccine 2019 UNK 43 Unknown complet ed hepatitis B adult vaccine 06/12/19 Given Ambulat ory Pharmac y influenza, seasonal, injectable 2018 [id number] 141 Seqirus complet ed influenza , seasonal, injectabl e 04/13/19 Given Ambulat ory Pharmac y hepatitis A-hepatitis B vaccine 2018 [id number] 104 GlaxoSmithKli ne complet ed hepatitis A-hepatit is B vaccine 02/17/19 Given Ambulat ory Pharmac y meningococcal A,C,Y,W-135 (MCV4P) 2018 [id number] 114 sanofi pasteur complet ed meningoco ccal A,C,Y,W-1 35 (MCV4P) 12/17/18 Given Ambulat ory Pharmac y hepatitis A-hepatitis B vaccine 2018 [id number] 104 GlaxoSmithKli ne complet ed hepatitis A-hepatit is B vaccine 12/17/18 Given Ambulat ory Pharmac y poliovirus vaccine, inactivated 2018 [id number] 10 sanofi pasteur complet ed polioviru s vaccine, inactivat ed 12/17/18 Given Ambulat ory Pharmac y tetanus, diphtheria, acellular pertu is 2018 525NP 115 GlaxoSmithKli ne complet ed tetanus, diphtheri a, acellular pertussis 12/17/18 Given Ambulat ory Pharmac y adenovirus vaccine, live 2018 [id number] 4 143 Teva Pharmaceutica ls complet ed [...] ory Pharmac y poliovirus vaccine, inactivated 2018 [id number] 10 sanofi pasteur complet ed polioviru s vaccine, inactivat ed 12/17/18 Given Ambulat ory Pharmac y adenovirus vaccine, live 2018 [id number] 4 143 Teva Pharmaceutica ls complet ed adenoviru s vaccine, live 12/17/18 Given Ambulat ory Pharmac y meningococcal A,C,Y,W-135 (MCV4P) 2018 [id number] 114 sanofi pasteur complet ed meningoco ccal A,C,Y,W-1 35 (MCV4P) 12/17/18 Given Ambulat ory Pharmac y measles, mumps and rubella virus vaccine 1 2018 UNK 03 Unknown (UNK) Not Given measles, mumps and rubella virus vaccine DoD poliovirus vaccine, inactivated 1 2018 [id number] 10 Sanofi Pasteur (PMC) complet ed polioviru s vaccine, inactivat ed DoD varicella virus vaccine 1 2018 UNK 21 Unknown (UNK) Not Given varicella virus vaccine DoD hepatitis A and hepatitis B vaccine 1 2018 [id number] 104 YlopoKline (SKB) complet ed hepatitis A and hepatitis B vaccine DoD meningococcal polysaccharid e (groups A, C, Y and W-135) diphtheria toxoid conjugate vaccine (MCV4P) 1 2018 [id number] 114 Sanofi Pasteur (PMC) complet ed meningoco ccal polysacch aride (groups A, C, Y and W-135) diphtheri a toxoid conjugate vaccine (MCV4P) DoD tetanus toxoid, reduced diphtheria toxoid, and acellular pertu is vaccine, adsorbed 2018 525NP 115 YlopoKline (SKB) complet ed tetanus toxoid, reduced diphtheri a toxoid, and acellular pertussis vaccine, adsorbed DoD Adenovirus, type 4 and type 7, live, oral 1 2018 [id number] 4 143 [employer] ([facility]) complet ed Adenoviru s, type 4 and [...] Performed At: 1 [facility] [address] [facility] [address] [place] [address] DESIREE SYED PHD Ph:[phone] 0108A-AM Jerrica Zavaal Infectiou s Disease Source of Test.LC PostDepSt [...] a hemolytic event. Performed At: 01 [facility] [place] [address] [place], [place] [id number] Katelin Medellin MD Ph:[phone] Performed At: [address] [id number] Min Villalobos MD Ph:[phone] 0108A-AM C Bryan Zavala Hematolog y [...] Blood Pressure 103 mm[Hg] 04/08/20 23 19:54:00 [facility] Bryan Julio Diastolic Blood Pressure 70 mm[Hg] 023 19:54:00 0108[facility] Bryan Julio Peripheral Pulse Rate 76 bpm 04/08/2023 19:54:00 [facility]108[facility] Bryan Julio Mean Arterial Pressure, Cuff (Calc) 81 mm[Hg] 04/08/2023 19:54:00 [facility]108[facility] Bryan Julio Temperature Oral 37.1 Ayaka 04/08/2023 19:54:00 0108[facility] Bryan Julio Peripheral Pulse Rate 89 bpm 04/07/2023 14:30:00 [facility] Julio Temperature Temporal Artery 36.4 Ayaka 04/07/2023 14:30:00 [facility] Bryan uJlio Systolic Blood Pressure 122 mm[Hg] 04/07/20 23 14:30:00 0108A-NANCY Julio Diastolic Blood Pressure 82 mm[Hg] 023 14:30:00 0108[facility] Bryan Julio Systolic Blood Pressure 118 mm[Hg] 03/20/20 22 14:01:00 0108[facility] Bryan Julio Diastolic Blood Pressure 76 mm[Hg] 022 14:01:00 0108[facility] Bryan Julio Temperature Temporal Artery 36.1 Ayaka 03/20/2022 14:01:00 0108[facility] Bryan Julio Peripheral Pulse Rate 86 bpm 03/20/2022 14:01:00 [facility] Bryan Julio Encounters Combined list of: 1) Encounters from Department of Veterans Affairs facilities going backup to the last 18 months, not all VA inpatient encounters are included; 2) Encounters from the Department of Defense facilities going backup to 280 months. Location Location Details Encounter Type Encounter Number Reason For Visit Attending Provider ADM Date DC Date Status Disposition Source [place] [id number] Notes Entered by: RADHA OZUNA 15 Dec 2018 0612 ------- ------- ------- ------- -- [id number] DAY 1 594 DEEPIKAFloyd ISMAEL CASTROBilly 12/15 Released w/o Limitations [place] [id number] Notes Entered by: Anastasiia MONTOYA 15 Dec 2018 0716 ------- ------- ------- ------- -- Optomet ry EDGAR Yoder 12/15 Released w/o Limitations [place] OUTPATIENT [id number] Notes Entered by: Anastasiia MONTERROSO 16 Dec 2018 0944 ------- ------- ------- ------- -- 594 ANIKET MONTERROSO 12/16 Released w/o Limitations [place] [id number] Notes Entered by: ELI ROSALES 17 Dec 2018 0640 ------- ------- ------- ------- -- [id number] DAY 3 594 ALLAN NG 12/17 Released w/o Limitations [place] OUTPATIENT [id number] Notes Entered by: RADHA OZUNA 17 Feb 2019 0627 ------- ------- ------- ------- -- E CO 1-48 HALEIGH LEACH 02/17 Released w/o Limitations [place] Procedures Combined list of: 1) Procedures from Department of Veterans Affairs facilities going back up to thelast 18 months, not all VA non-surgical procedures are included; 2) All procedures from the Department of Defense facilities. Procedure Procedure Type Code Date Perfomer Comments [facility] IMMUNIZATION ADMINISTRATION (INCLUDES PERCUTANEOUS, INTRADERMAL, SUBCUTANEOUS, OR INTRAMUSCULAR INJECTIONS); 1 VACCINE (SINGLE OR COMBINATION VACCINE/TOXOID) [facility] ADENOVIRUS VACCINE, TYPE 7, LIVE, FOR ORAL USE [facility] AUDIOMETRIC TESTING OF GROUPS [facility] SCREENING TEST OF VISUAL ACUITY, QUANTITATIVE, BILATERAL [facility] COLLECTION OF VENOUS BLOOD BY VENIPUNCTURE [facility] Vaccines Viral Polio, Inactivated Vaccines Viral Polio, Inactivated 12932 ALLAN NG [facility] Physician Supervised Injection Intramuscular Antibiotic Physician Supervised Injection Intramuscular Antibiotic 86725 BERENICE ALLAN [facility] Vaccines Adenovirus Type 4 Live, For Oral Use Vaccines Adenovirus Type 4 Live, For Oral Use 70061 019 [place] [facility] Vaccines Adenovirus Type 7 Live, For Oral Use Vaccines Adenovirus Type 7 Live, For Oral Use 68[address] [facility] BERENICE [facility] Meningococcal Polysaccharide Diphtheria Toxoid Conjugate Vaccine [place] [facility] Immunization Administration By Injection, One Vaccine Immunization Administration By Injection, One Vaccine [address]6580 [place] [facility] Immunization Administration By Injection, Each Additional Vaccine Immunization Administration By Injection, Each Additional Vaccine 52222 [place] [facility] Hepatitis A And Hepatitis B (Intramuscular Use) Adult Dosage Hepatitis A And Hepatitis B (Intramuscular Use) Adult Dosage 35667 [facility] BERENICE [facility] Tdap Vaccine Tdap Vaccine 31975 [facility] BERENICE [facility] Audiometry Group Testing [employer]ometry Group Testing 6[address] [facility] ANIKET MONTERROSO Venipuncture Venipuncture 84728 SIERRAONOMISMAEL Barrientos [employer] Fitting Monofocal Except For Aphakia [facility] [facility] Fitting Monofocal Except For Aphakia 73110 EDGAR PARKER Habitual Rx OD -2.50 DS 20/20 OS -3.25 DS 20/20 PD: 63 Supervisor Sewing Room passes initial screening StandardsIAW Lynette 6130.03, 5.30 and 5.40 Anatomical Facial Characteristics : Frame Size: 52-20-150 Optical devices were ordered using [facility] Laboratory Specifications: 5A frame, M50, UPLC Insert ordered. [facility] Screening Test Of Visual Acuity, Quantitative, Bilateral Screening Test Of Visual Acuity, Quantitative, Bilateral 67267 EDGAR PARKER Hepatitis A And Hepatitis B (Intramuscular Use) Adult Dosage Hepatitis A And Hepatitis B (Intramuscular Use) Adult Dosage 42073 HALEIGH BONILLA Immunization Administration By Injection, One Vaccine Immunization Administration By Injection, One Vaccine 63076 HALEIGH BONILLA [facility] No data available for this section Ambulato ry Pharmacy Social History Combined list of available smoking, tobacco, and other social history from Department of Defense and Veterans Affairs facilities. Social History Type Response Date Comment Sourc e Sex Representation Female (finding) 08/21/2020 Unknown Organization This section is an empty social history section. [facility] Tobacco Never-cigarette user Cigarette use:. Never-other tobacco user (not cigarettes) Other Tobacco use:. Ambulatory Pharmacy Sexual Orientation Ambula tory Pharmacy Gender identity Ambulator y Pharmacy Assessment and Plan Combined list of future care activities from Department of Defense and Veterans Affairs facilities (e.g., assessment and plan notes, appointments, orders, and referrals). Additional future care activities may be listed in the Plan of Care section. Result Assessment and Plan Date Source Assessment and Plan No data available for this section 01/24/2025 Ambulatory Pharmacy Functional Status Combined list of recent functional and cognitive assessments recorded at Department of Defense and Veterans Affairs (VA).VA Functional [place] Measurement (FIM) Scale: 1 = Total Assistance (Subject = 0% +), 2 = Maximal Assistance (Subject = 25% +), 3 = Moderate Assistance (Subject = 50% +), 4 = Minimal Assistance (Subject = 75% +), 5 = Supervision, 6 = Modified [place] (Device), 7 = Complete [place] (Timely, Safely). Assessment Date/Time Source Assessment Type Assessment Skill Assessment Score Assessment Details No data available for this section
[2025-01-24 18:42] LABS: Hematocrit 31.1 % (37.0-47.0); Hemoglobin 10.2 g/dL (12.0-15.0); Immature Granulocyte Percent A 0.6 % (0-0.5); Lymphocytes Absolute Auto 1.72 K/mm3 (0.9-3.2); Mean Corpuscular HGB Conc 32.8 g/dl (32-36); Mean Corpuscular Hemoglobin 27.8 pg (26-34); Mean Corpuscular Volume 84.7 fl (80-100); Nucleated Red Blood Cells Absolute Auto 0.000 K/mm3 (0.0-0.012); Nucleated Red Blood Cells Perc 0.0 % (0.0-0.2); Platelet Count Result 179 k/mm3 (150-375); Red Blood Count 3.67 M/mm3 (4.2-5.4); White Blood Count 9.8 K/mm3 (4.5-10.0)
[2025-01-24 18:47] LABS: Add Urine Microscopic? YES; Appearance Urine Cloudy (Clear); Glucose Urine UA Negative (Negative); Leukocyte Esterase Ur 2+ LEU/UL (Negative); Nitrate Urine Negative (Negative); Non Pathogenic Casts 0-2; Specific Grav Ur 1.021 (1.001-1.035)
[2025-01-24 18:55] LABS: Alanine Aminotransferase 20 U/L (6-35); Albumin Level 3.3 g/dL (3.5-5.1); Alkaline Phosphatase 136 U/L (38-126); Anion Gap 7 mmol/L (4-12); Aspartate Amino Transferase 24 U/L (14-36); Bilirubin,Total 0.4 mg/dL (0.2-1.3); Blood Urea Nitrogen 6 mg/dL (7-17); Calcium 9.4 mg/dL (8.4-10.2); Carbon Dioxide 20 mmol/L (22-30); Chloride 105 mmol/L (98-107); Estimated Glomerular Filt Rate > 60; Glucose 165 mg/dL (65-110); Potassium 3.3 mmol/L (3.4-5.0); Sodium 132 mmol/L (137-145); Total Protein 6.2 g/dL (6.3-8.2); Uric Acid 6.3 mg/dL (2.5-7.5)
[2025-01-24 18:56] LABS: Total Protein Urine Random 17 mg/dL; Ur Ttl Prot Creatinine Ratio 0.11 mg/mg (0-0.20)
--- NOTE | 2025-01-24 19:12 | PC.NURSE ---
Called Dr. Armando, update on pt, labs, and blood pressure. Orders received to discharge pt with instructions to schedule an NST for Friday, keep next scheduled appointment, and when to return to the unit.
--- NOTE | 2025-01-24 19:21 | PC.NURSE ---
Pt discharged with an NST scheduled Friday, instructions to keep next scheduled appointment, and when to return to the unit, pt verbalizes understanding.
== END 2025-01-24 19:21 | disposition home or self-care (01) ==
LOC: ANHOBOP 18:07 → ANHOBPP 18:07
PROVIDERS: PCP Student in an Organized Health Care Education/Training Program; Visit Provider Student in an Organized Health Care Education/Training Program
DX: O13.9 Gestational [pregnancy-induced] hypertension without significant proteinuria, unspecified trimester (principal); Z3A.00 Weeks of gestation of pregnancy not specified
CPT/HCPCS: 36415; 59025; 80053; 81001; 82570; 84156; 84550; 85025

== ENCOUNTER 2025-01-26 07:56 | Outpatient (RCR) | payer BC, OTHER, SELFPAY ==
[2025-01-26 08:35] LABS: Hematocrit 33.8 % (37.0-47.0); Hemoglobin 11.0 g/dL (12.0-15.0); Immature Granulocyte Percent A 0.6 % (0-0.5); Lymphocytes Absolute Auto 1.45 K/mm3 (0.9-3.2); Mean Corpuscular HGB Conc 32.5 g/dl (32-36); Mean Corpuscular Hemoglobin 27.5 pg (26-34); Mean Corpuscular Volume 84.5 fl (80-100); Nucleated Red Blood Cells Absolute Auto 0.000 K/mm3 (0.0-0.012); Nucleated Red Blood Cells Perc 0.0 % (0.0-0.2); Platelet Count Result 182 k/mm3 (150-375); Red Blood Count 4.00 M/mm3 (4.2-5.4); White Blood Count 7.8 K/mm3 (4.5-10.0)
[2025-01-26 08:38] LABS: Add Urine Microscopic? YES; Appearance Urine Cloudy (Clear); Glucose Urine UA Negative (Negative); Leukocyte Esterase Ur 2+ LEU/UL (Negative); Nitrate Urine Negative (Negative); Non Pathogenic Casts 0-2; Specific Grav Ur 1.015 (1.001-1.035)
[2025-01-26 08:49] LABS: Total Protein Urine Random 14 mg/dL; Ur Ttl Prot Creatinine Ratio 0.11 mg/mg (0-0.20)
[2025-01-26 08:54] LABS: Alanine Aminotransferase 17 U/L (6-35); Albumin Level 3.3 g/dL (3.5-5.1); Alkaline Phosphatase 146 U/L (38-126); Anion Gap 6 mmol/L (4-12); Aspartate Amino Transferase 23 U/L (14-36); Bilirubin,Total 0.4 mg/dL (0.2-1.3); Blood Urea Nitrogen 6 mg/dL (7-17); Calcium 9.3 mg/dL (8.4-10.2); Carbon Dioxide 21 mmol/L (22-30); Chloride 108 mmol/L (98-107); Estimated Glomerular Filt Rate > 60; Glucose 97 mg/dL (65-110); Potassium 3.8 mmol/L (3.4-5.0); Sodium 135 mmol/L (137-145); Total Protein 6.3 g/dL (6.3-8.2); Uric Acid 6.3 mg/dL (2.5-7.5)
[2025-01-26 09:03] VITALS: BP 127/85; PULSE 88
== END 2025-02-03 09:15 | disposition home or self-care (01) ==
LOC: ANHOBOP 07:56
PROVIDERS: PCP Student in an Organized Health Care Education/Training Program; Visit Provider Student in an Organized Health Care Education/Training Program
DX: O26.893 Other specified pregnancy related conditions, third trimester (principal); R03.0 Elevated blood-pressure reading, without diagnosis of hypertension; Z3A.39 39 weeks gestation of pregnancy
CPT/HCPCS: 36415; 59025; 80053; 81001; 82570; 84156; 84550; 85025

== ENCOUNTER 2025-01-28 17:01 | Inpatient (IN) | payer BC, OTHER, SELFPAY ==
[2025-01-28] VITALS (13 sets, daily range): BP systolic 121–150; BP diastolic 70–96; PULSE 79–105; RESP 18; TEMP 36.4; BMI 34.7
--- NOTE | ~2025-01-28 | XR_ITS ---
EXAMINATION: XR pelvis 1-2V, 01/29/2025 19:11 CDT HISTORY: missing raytec after vaginal delivery COMPARISON: No comparisons available. Findings: No acute fracture or malalignment. No significant degenerative changes. Soft tissues unremarkable. Impression: No radiopaque foreign body identified Reviewed, dictated and finalized at location A. Impression: No radiopaque foreign body identified
--- OUTSIDE RECORDS SUMMARY | 2025-01-28 17:06 | XMS_ITS | Continuity of Care Document ---
Author Name [facility] Organization [facility] Care Team Providers Care Terrapin Fisher Name Role Phone [facility] Unavailable Unavailable Problems Combined list of problems [...] Site Reaction Lot Number CVX Code Drug Category Director Status Comments Source measles/mumps /rubella virus vaccine 2021 Louis card Arm, left upper [id number] [employer] complet ed measles/m umps/rube lla virus vaccine 03/20/22 Given 0108A-A Bryan Randall influenza virus vaccine, inactivated 2021 Louis card Shoul anuel, left (delt oid) [id number] 150 ID [employer] complet ed influenza virus vaccine, inactivat ed 03/20/22 Given 0108A-A Bryan Randall hepatitis A adult vaccine 2019 UNK 52 Unknown complet ed hepatitis A adult vaccine 06/12/19 Given Ambulat ory Pharmac y hepatitis B adult vaccine 2019 UNK 43 Unknown complet ed hepatitis B adult vaccine 06/12/19 Given Ambulat ory Pharmac y influenza, seasonal, injectable 2018 [id number] 141 Seqirus complet ed influenza , seasonal, injectabl e 04/13/19 Given Ambulat ory Pharmac y hepatitis A-hepatitis B vaccine 2018 [id number] 104 GlaxoSmithKli ne complet ed hepatitis A-hepatit is B vaccine 02/17/19 Given Ambulat ory Pharmac y meningococcal A,C,Y,W-135 (MCV4P) 2018 [id number] 114 sanofi pasteur complet ed meningoco ccal A,C,Y,W-1 35 (MCV4P) 12/17/18 Given Ambulat ory Pharmac y hepatitis A-hepatitis B vaccine 2018 [id number] 104 GlaxoSmithKli ne complet ed hepatitis A-hepatit is B vaccine 12/17/18 Given Ambulat ory Pharmac y poliovirus vaccine, inactivated 2018 [id number] 10 sanofi pasteur complet ed polioviru s vaccine, inactivat ed 12/17/18 Given Ambulat ory Pharmac y tetanus, diphtheria, acellular pertu is 2018 [id number] 115 GlaxoSmithKli ne complet ed tetanus, diphtheri a, acellular pertussis 12/17/18 Given Ambulat ory Pharmac y adenovirus vaccine, live 2018 [id number] 4 143 Teva Pharmaceutica ls complet ed [...] ory Pharmac y poliovirus vaccine, inactivated 2018 [id number] 10 sanofi pasteur complet ed polioviru s vaccine, inactivat ed 12/17/18 Given Ambulat ory Pharmac y adenovirus vaccine, live 2018 [id number] 4 143 Teva Pharmaceut[employer] ls complet ed adenoviru s vaccine, live 12/17/18 Given Ambulat ory Pharmac y meningococcal A,C,Y,W-135 (MCV4P) 2018 [id number] 114 sanofi pasteur complet ed meningoco ccal A,C,Y,W-1 35 (MCV4P) 12/17/18 Given Ambulat ory Pharmac y measles, mumps and rubella virus vaccine 1 2018 UNK 03 Unknown (UNK) Not Given measles, mumps and rubella virus vaccine DoD poliovirus vaccine, inactivated 1 2018 [id number] 10 Sanofi Pasteur (PMC) complet ed polioviru s vaccine, inactivat ed DoD varicella virus vaccine 1 2018 UNK 21 Unknown (UNK) Not Given varicella virus vaccine DoD hepatitis A and hepatitis B vaccine 1 2018 [id number] 104 Mini[employer]uxe[employer]line (SKB) complet ed hepatitis A and hepatitis B vaccine DoD meningococcal polysaccharid e (groups A, C, Y and W-135) diphtheria toxoid conjugate vaccine (MCV4P) 1 2018 [id number] 114 Sanofi Pasteur (PMC) complet ed meningoco ccal polysacch aride (groups A, C, Y and W-135) diphtheri a toxoid conjugate vaccine (MCV4P) DoD tetanus toxoid, reduced diphtheria toxoid, and acellular pertu is vaccine, adsorbed 2018 [id number] 115 [employer] (SKB) complet ed tetanus toxoid, reduced diphtheri a toxoid, and acellular pertussis vaccine, adsorbed DoD Adenovirus, type 4 and type 7, live, oral 1 2018 [id number] 4 143 [employer] ([facility]) complet ed Adenoviru s, type 4 and [...] Performed At: 1 [facility] [address] [facility] [address] [place] [address] DESIREE SYED PHD Ph:[phone] 0108A-AM Jerrica Zavala Infectiou s Disease [...] a hemolytic event. Performed At: 01 [facility] [address] [place], [place] [id number] Katelin Medellin MD Ph:[phone] Performed At: [address] [id number] Min Villalobos MD Ph:[phone] 0108A-AM C Bryan Zavala Hematolog y [...] Blood Pressure 103 mm[Hg] 04/08/20 23 19:54:00 [facility] Bryan Julio Diastolic Blood Pressure 70 mm[Hg] 023 19:54:00 [facility] Bryan Julio Peripheral Pulse Rate 76 bpm 04/08/2023 19:54:00 [facility] Bryan Julio Mean Arterial Pressure, Cuff (Calc) 81 mm[Hg] 04/08/2023 19:54:00 [facility] Bryan Julio Temperature Oral 37.1 Ayaka 04/08/2023 19:54:00 [facility] Bryan Julio Peripheral Pulse Rate 89 bpm 04/07/2023 14:30:00 [facility] Bryan Julio Temperature Temporal Artery 36.4 Ayaka 04/07/2023 14:30:00 [facility] Bryan Julio Systolic Blood Pressure 122 mm[Hg] 04/07/20 23 14:30:00 0108A-NANCY Julio Diastolic Blood Pressure 82 mm[Hg] 023 14:30:00 [facility] Bryan Julio Systolic Blood Pressure 118 mm[Hg] 03/20/20 22 14:01:00 [facility] Bryan Julio Diastolic Blood Pressure 76 mm[Hg] 022 14:01:00 [facility] Bryan Julio Temperature Temporal Artery 36.1 Ayaka 03/20/2022 14:01:00 [facility] Bryan Julio Peripheral Pulse Rate 86 bpm 03/20/2022 14:01:00 [facility] Bryan Julio Encounters Combined list of: 1) Encounters from Department of Veterans Affairs facilities going backup to the last 18 months, not all VA inpatient encounters are included; 2) Encounters from the Department of Defense facilities going backup to 280 months. Location Location Details Encounter Type Encounter Number Reason For Visit Attending Provider ADM Date DC Date Status Disposition Source [place] OUTPATIENT [id number] Notes Entered by: RADHA OZUNA 15 Dec 2018 0612 ------- ------- ------- ------- -- [id number] DAY 1 594 DEEPIKAFloyd ISMAEL CASTROBilly 12/15 Released w/o Limitations [place] [id number] Notes Entered by: Anastasiia MONTOYA 15 Dec 2018 0716 ------- ------- ------- ------- -- Optomet ry EDGAR Yoder 12/15 Released w/o Limitations [place] OUTPATIENT [id number] Notes Entered by: Anastasiia MONTERROSO 16 Dec 2018 0944 ------- ------- ------- ------- -- 594 ANIKET MONTERROSO 12/16 Released w/o Limitations [place] OUTPATIENT [id number] Notes Entered by: ELI ROSALES 17 Dec 2018 0640 ------- ------- ------- ------- -- [id number] DAY 3 594 ALLAN NG 12/17 Released w/o Limitations [place] OUTPATIENT [id number] Notes Entered by: RADHA OZUNA 17 Feb 2019 0627 ------- ------- ------- ------- -- E CO 1-48 HALEIGH LEACH 02/17 Released w/o Limitations [place] Procedures Combined list of: [...] INJECTIONS); 1 VACCINE (SINGLE OR COMBINATION VACCINE/TOXOID) [facility] ADENOVIRUS VACCINE, TYPE 7, LIVE, FOR ORAL USE [facility] AUDIOMETRIC TESTING OF GROUPS [facility] SCREENING TEST OF VISUAL ACUITY, QUANTITATIVE, BILATERAL [facility] COLLECTION OF VENOUS BLOOD BY VENIPUNCTURE DoD Vaccines Viral Polio, Inactivated (Salk) Vaccines Viral Polio, Inactivated (Salk) [address]8799 BERENICE [facility] Supervised Injection Intramuscular Antibiotic Supervised Injection Intramuscular Antibiotic 31464 [facility] BERENICE [facility] Vaccines Adenovirus Type 4 Live, For Oral Use Vaccines Adenovirus Type 4 Live, For Oral Use 05302 [facility] BERENICE [facility] Vaccines Adenovirus Type 7 Live, For Oral Use Vaccines Adenovirus Type 7 Live, For Oral Use 60627 [facility] BERENICE [facility] Meningococcal Polysacch Diphtheria Toxoid Conjugate Vaccine [address] [place] [address] [facility] Immunization Administration One Vaccine Immunization Administration One Vaccine [address] [place] [address] [facility] Immunization Administration Each Additional Vaccine Immunization Administration Each Additional Vaccine [address] [place] [address] Hepatitis A And Hepatitis B (Intramuscular Use) Adult Dosage Hepatitis A And Hepatitis B (Intramuscular Use) Adult Dosage [address] [place] [address] [facility] Tdap Vaccine Tdap Vaccine [address] [place] [address] [facility] Audiometry Group Testing Audiometry Group Testing [address] [facility] ANIKET MONTERROSO [facility] Venipuncture Venipuncture 04808 ASTRONOMISMAEL Barrientos [facility] [facility] Fitting Monofocals (Not For Aphakia) [facility] Fitting Monofocals (Not For Aphakia) 95487 EDGAR PARKER Habitual Rx OD -2.50 DS 20/20 OS -3.25 DS 20/20 PD: 63 Chemistry Technician passes initial screening StandardsIAW Lynette 6130.03, 5.30 and 5.40 Anatomical Facial Characteristics : Frame Size: 52-20-150 Optical devices were ordered using SRTS Laboratory Specifications: 5A frame, M50, UPLC Insert ordered. [facility] Screening Test Of Visual Acuity, Quantitative, Bilateral Screening Test Of Visual Acuity, Quantitative, Bilateral [id number] 019 EDGAR PARKER Hepatitis A And Hepatitis B (Intramuscular Use) Adult Dosage Hepatitis A And Hepatitis B (Intramuscular Use) Adult Dosage 92659 HALEIGH BONILLA Immunization Administration One Vaccine Immunization Administration One Vaccine 70523 HALEIGH BONILLA DoD Social History Combined list [...] section is an empty social history section. [facility] Assessment and Plan Combined list of future care activities from Department of Defense and Veterans Affairs facilities (e.g., assessment and plan notes, appointments, orders, and referrals). Additional future care activities may be listed in the Plan of Care section. Result Assessment and Plan Date Source Assessment and Plan No data available for this section 01/28/2025 Ambulatory Pharmacy Functional Status Combined list of recent functional and cognitive assessments recorded at Department of Defense and Veterans Affairs (VA).VA Functional [place] Measurement (FIM) Scale: 1 = Total Assistance (Subject = 0% +), 2 = Maximal Assistance (Subject = 25% +), 3 = Moderate Assistance (Subject = 50% +), 4 = Minimal Assistance (Subject = 75% +), 5 = Supervision, 6 = Modified [place] (Device), 7 = Complete [place] (Timely, Safely). Assessment Date/Time Source Assessment Type Assessment Skill Assessment Score Assessment Details No data available for this section
[2025-01-28 17:48] LABS: Hematocrit 34.4 % (37.0-47.0); Hemoglobin 11.2 g/dL (12.0-15.0); Immature Granulocyte Percent A 0.6 % (0-0.5); Lymphocytes Absolute Auto 1.87 K/mm3 (0.9-3.2); Mean Corpuscular HGB Conc 32.6 g/dl (32-36); Mean Corpuscular Hemoglobin 27.5 pg (26-34); Mean Corpuscular Volume 84.3 fl (80-100); Nucleated Red Blood Cells Absolute Auto 0.000 K/mm3 (0.0-0.012); Nucleated Red Blood Cells Perc 0.0 % (0.0-0.2); Platelet Count Result 204 k/mm3 (150-375); Red Blood Count 4.08 M/mm3 (4.2-5.4); White Blood Count 9.5 K/mm3 (4.5-10.0)
--- NOTE | 2025-01-28 18:08 | LDADM ---
This patient, Sally Haney, was admitted to Labor/Delivery/Recovery 108 on 01/28/25 at 17:01. Plans for labor, pain management and were discussed with patient. Patient/family oriented to hospital policies and general routines including ID bracelet, bed and alarms, visiting hours, pain management, procedures, bathroom and other care routines, personal items, smoking policy, room service/diet and guest tray routines, infant security routines, and visiting hours. Patient/Family are encouraged to report perceived risks to care and to ask questions if they do not understand what they are told or what they should do. See OBIX for further documentation.
--- NOTE | 2025-01-28 18:13 | PM.IMHP ---
H&P: HPI History of Present Illness Date/Time: 01/28/25 18:13 Chief Complaint: Induction of labor Narrative: Sally is a 24yo @ 39.6wks who presents for induction of labor. She has had regular care. On admission, she was found to have mild range BPs; had mild range BPs earlier this week, but PIH w/u was negative. She denies DUNN, vision changes, CP, or SOB. She reports good movement. No VB or LOF. Her is complicated by: - Third tri HIV positive but confirmation testing negative. no repeat HIV needed on admission to L&D - Gestational hypertension; repeat PIH w/u pending; has been on ASA 81mg Review of Systems Constitutional: Constitutional: Denies chills, Denies fever(s) and Denies headache(s) Eyes: Eyes: Denies change in vision ENT: Denies headache(s) Cardiovascular: Cardiovascular: Denies chest pain and Denies dyspnea Respiratory: Respiratory: Denies dyspnea Genitourinary: Genitourinary: Denies abnormal vaginal bleeding and Denies vaginal discharge Neurologic: Denies headache(s) Psychiatric: Psychiatric: Denies anxiety and Denies depression PMFSH Past Medical History Medical History Ana María-Danlos, hypermobile type Suppression of menses Headache, migraine Surgical History Surgical History H/O foot surgery heel surgery History of tonsillectomy (~2005) Family History Family History Father Heart valve problem Mother Heart valve problem Sibling Depression Asthma Grandparent Heart valve problem COPD (chronic obstructive pulmonary disease) Colon polyp Grandparent Brain cancer Grandparent Maternal hemorrhaging affecting delivery Sibling Maternal hemorrhaging affecting delivery Social History Social History 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- coffee 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 Smoking status: Never smoker Tobacco type: e-cigarettes/vaping Alcohol intake: former Drinks per week: 1 Alcohol use details: social Substance use: never Substance use type: does not use Do You Feel Safe in your Home?: Yes Lack of Transportation: No Lack of Food: Never True Current Housing: I Have Housing Concerned About Future Housing: No Difficulty Paying Gas/Electric Bills: No Difficulty Paying for Meds: No Currently Unemployed: No Education: Associate Degree Difficulty w/ Childcare or Family Care: No Living arrangements: with family Occupation/Education: occupation 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 Gender identity (if verbalized by the patient): Female Sexual Orientation (if Verbalized by the Patient): Straight or Heterosexual Spiritual care concerns: No Meds Home Medications and Allergies Home Medications ?Medication ?Instructions ?Recorded ?Confirmed ?Type docosahexaenoic acid 200 mg 200 mg PO DAILY 07/07/24 01/28/25 History capsule ( DHA) aspirin 81 mg chewable tablet 81 mg PO DAILY 09/01/24 01/28/25 History doxylamine succinate 25 mg tablet 25 mg PO QHS PRN sleep 09/27/24 01/28/25 History (Unisom (doxylamine)) acetaminophen 500 mg tablet 500 mg PO Q6H PRN pain 01/28/25 01/28/25 History (Acetaminophen Extra Strength) Allergies Allergy/AdvReac Type Severity Reaction Status Date / Time No Known Allergies Allergy Verified 01/28/25 17:58 Vital Signs Vital Signs - 24 hr 01/28/25 17:42 01/28/25 17:45 01/28/25 17:54 Pulse Rate 89 103 H Blood Pressure 134/95 H 131/91 H Oxygen Delivery Room Air 01/28/25 18:01 Pulse Rate 105 H Blood Pressure 131/96 H Oxygen Delivery Exam Const: General: cooperative, no acute distress and obese Nutritional Appearance: obese Orientation/consciousness: patient oriented x3 Resp: Effort & Inspection: normal respiratory effort Cardio: Rate: regular rate GI: GI Palp: No abdominal tenderness : Other: FHT's: 130's/ mod mimi/ + accels/ no decels - cat 1 TOCO: irregular ctxs Cervix: /60/-3 Membranes: intact Presentation: cephalic Skin: General skin exam: normal color Neuro: General: patient oriented x3 Extrem: General: normal to inspection Psych: Appearance: grossly normal Affect: normal affect Attitude: cooperative H&P: Results Labs Labs: Short CBC 01/28/25 Range/Units 17:43 WBC 9.5 (4.5-10.0) K/mm3 Hgb 11.2 L (12.0-15.0) g/dL Hct 34.4 L (37.0-47.0) % Plt Count 204 (150-375) k/mm3 Assessment and Plan Assessment and plan (1) Encounter for induction of labor: Code(s): Z34.90 - Encounter for supervision of normal , unspecified, unspecified trimester Status: Acute (2) Gestational hypertension affecting first : Code(s): O13.9 - Gestational [-induced] hypertension without significant proteinuria, unspecified trimester Status: Acute Plan - Admitted overnight for induction of labor; risks and benefits discussed - Cervidil tonight - Repeat PIH w/u ordered, will monitor BPs closely, asymptomatic - Continuous monitoring - GBS neg - Anesthesia consult PRN pain
[2025-01-28 18:28] LABS: Syphilis IgG/IgM Antibody Non-Reactive (Nonreactive)
[2025-01-28 18:53] LABS: Alanine Aminotransferase 18 U/L (6-35); Albumin Level 3.8 g/dL (3.5-5.1); Alkaline Phosphatase 178 U/L (38-126); Anion Gap 7 mmol/L (4-12); Aspartate Amino Transferase 23 U/L (14-36); Bilirubin,Total 0.4 mg/dL (0.2-1.3); Blood Urea Nitrogen 6 mg/dL (7-17); Calcium 9.5 mg/dL (8.4-10.2); Carbon Dioxide 22 mmol/L (22-30); Chloride 107 mmol/L (98-107); Estimated CRCL calculation 146 ml/min; Estimated Glomerular Filt Rate > 60; Glucose 100 mg/dL (65-110); Potassium 4.0 mmol/L (3.4-5.0); Sodium 136 mmol/L (137-145); Total Protein 6.4 g/dL (6.3-8.2); Uric Acid 5.9 mg/dL (2.5-7.5)
[2025-01-28] MEDS: DINOPROSTONE 10 MG VAG INSERT VAGINAL (19:17)
[2025-01-29] VITALS (220 sets, daily range): BP systolic 110–170; BP diastolic 65–106; PULSE 64–158; RESP 18–20; TEMP 36.2–37.5; O2SAT 96–100
[2025-01-29] MEDS: ACETAMINOPHEN 500 MG TABLET 1000 MG PO (01:34)
[2025-01-29] MEDS: fentaNYL CITRATE INJ (*CRX) 100 MCG/2 ML VIAL IV PUSH ×2 (06:16→07:33)
--- NOTE | 2025-01-29 08:26 | PM.OBPNLAB ---
Pain Control Date/time seen: 01/29/25 08:26 Pain control: narcotic analgesia Comments: requesting epidural Pelvic Exam Dilation (cm): 4 (.5) Effacement (%): 70 station: -1 Amniotic membrane status: Intact Comments: will AROM after epidural Contractions Monitor mode: External Contraction frequency: 4 Contraction pattern: Regular Status status: Category l Assessment and Plan Plan: continuous present management Comments: - golden get epidural, then plan for AROM, pitocin after she is more comfortable
[2025-01-29] MEDS: LACTATED RINGERS 1,000 ML 125 ML IV CONT ×2 (08:30→09:57)
[2025-01-29] MEDS: ONDANSETRON INJ 4 MG/2 ML VIAL IV PUSH (09:03)
--- NOTE | 2025-01-29 09:03 | P.PNAN_ITS ---
Anes - Eval Pre Procedure Procedure: labor pain management Date/Time: 01/29/25 09:03 Surgeon: Martin Preop Diagnosis: pain during labor Pre Op Diagnosis: IOL Patient Data Age: 24 Gender: F Height: 1.65 m Weight: 94.5 kg Last Vital Signs Temp 97.1 F L 01/29/25 01:01 Pulse 94 01/29/25 09:01 Resp 18 01/28/25 18:00 BP 144/98 H 01/29/25 09:01 O2 Del Method Room Air 01/28/25 17:54 Allergies Allergy/AdvReac Type Severity Reaction Status Date / Time No Known Allergies Allergy Verified 01/28/25 17:58 Home Medications ?Medication ?Instructions ?Recorded ?Confirmed ?Type docosahexaenoic acid 200 mg 200 mg PO DAILY 07/07/24 0 01/28/25 History capsule ( DHA) aspirin 81 mg chewable tablet 81 mg PO DAILY 09/01/24 01/28/25 History doxylamine succinate 25 mg tablet 25 mg PO QHS PRN sle ep 09/27/24 01/28/25 History (Unisom (doxylamine)) acetaminophen 500 mg tablet 500 mg PO Q6H PRN pain 01/28/25 History (Acetaminophen Extra Strength) Laboratory Tests 01/28/25 01/28/25 17:40 17:43 WBC 9.5 K/mm3 (4.5-10.0) RBC 4.08 L M/mm3 (4.2-5.4) Hgb 11.2 L g/dL (12.0-15.0) Hct 34.4 L % (37.0-47.0) MCV 84.3 fl (80-100) MCH 27.5 pg (26-34) MCHC 32.6 g/dl (32-36) RDW 11.9 % (11.5-14.5) Plt Count 204 k/mm3 (150-375) MPV 10.7 H fl (7.4-10.4) Immature Gran % (Auto) 0.6 H % (0-0.5) Neut % (Auto) 72.7 % (45.5-73.1) Lymph % (Auto) 19.8 % (18.3-44.2) Murray % (Auto) 5.7 % (2.6-8.5) Eos % (Auto) 1.0 % (0-4.4) Baso % (Auto) 0.2 % (0.2-1.2) Lymph # (Auto) 1.87 K/mm3 (0.9-3.2) Murray # (Auto) 0.5 K/mm3 (0.1-0.6) Eos # (Auto) 0.1 K/mm3 (0-0.3) Baso # (Auto) 0.0 K/mm3 (0.0-0.1) Abs Immat Gran (auto) 0.06 H K/mm3 (0.00-0.031) Absolute Neuts (auto) 6.9 H K/mm3 (1.3-6.7) Absolute Nucleated RBC 0.000 K/mm3 (0.0-0.012) Nucleated RBC % 0.0 % (0.0-0.2) Sodium 136 L mmol/L (137-145) Potassium 4.0 mmol/L (3.4-5.0) Chloride 107 mmol/L (98-107) Carbon Dioxide 22 mmol/L (22-30) Anion Gap 7 mmol/L (4-12) BUN 6 L mg/dL (7-17) Creatinine 0.57 L mg/dL (0.7-1.0) Estim Creat Clear Calc 146 ml/min Estimated GFR > 60 (59 - ) Glucose 100 mg/dL (65-110) Uric Acid 5.9 mg/dL (2.5-7.5) Calcium 9.5 mg/dL (8.4-10.2) Total Bilirubin 0.4 mg/dL (0.2-1.3) AST 23 U/L (14-36) ALT 18 U/L (6-35) Alkaline Phosphatase 178 H U/L (38-126) Total Protein 6.4 g/dL (6.3-8.2) Albumin 3.8 g/dL (3.5-5.1) Syphilis IgG/IgM Ab Non-reactive (Nonreactive) Blood Type B Positive Antibody Screen Negative Other studies: 01/24/25 Echo: Summary 1. Complete two-dimensional, color flow and Doppler transthoracic echocardiogram is performed. 2. Ordering provider: Cash Duvall MD. 3. Left ventricular chamber dimension is normal. 4. Left ventricular systolic function is normal, estimated at 60-65. 5. There is no increased left ventricular wall thickness. 6. The left ventricular diastolic function is normal. 7. There is mild mitral valve regurgitation. 8. The mitral valve has thickened leaflets. 9. There is mild tricuspid valve regurgitation. 10. There is mild pulmonic regurgitation. 11. There is small pericardial effusion. Normal Aortic root Left Ventricle Left ventricular chamber dimension is normal. Left ventricular systolic function is normal, estimated at 60-65. There is no increased left ventricular wall thickness. The left ventricular diastolic function is normal. Patient hx anesthesia problems: none Family hx anesthesia problems: none Results Review: All pre-operative results and documents have been reviewed as part of the pre- operative evaluation. [facility] Past Medical History Medical History (Updated 01/29/25 @ 09:11 by Digna Burr CRNA) Ana María-Danlos, hypermobile type evaluated by MFM at [facility]. low probability for vascular type, pt to follow up at [place] for further Suppression of menses Headache, migraine Surgical History Surgical History H/O foot surgery heel surgery History of tonsillectomy (~2005) Family History Family History Father Heart valve problem Mother Heart valve problem Sibling Depression Asthma Grandparent Heart valve problem COPD (chronic obstructive pulmonary disease) Colon polyp Grandparent Brain cancer Grandparent Maternal hemorrhaging affecting delivery Sibling Maternal hemorrhaging affecting delivery Social History Social History 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- coffee and cola Smoking status: Former smoker Tobacco type: e-cigarettes/vaping Second hand tobacco smoke exposure: Yes Alcohol intake: former Drinks per week: 1 Alcohol use details: social Substance use: never Substance use type: does not use Do You Feel Safe in your Home?: Yes Lack of Transportation: No Lack of Food: Never True Current Housing: I Have Housing Concerned About Future Housing: No Difficulty Paying Gas/Electric Bills: No Difficulty Paying for Meds: No Currently Unemployed: No Education: Trade/Vocational Certificate Difficulty w/ Childcare or Family Care: No Living arrangements: with family Occupation/Education: occupation 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
--- NOTE | 2025-01-29 09:55 | PM.OBPNLAB ---
Pain Control Date/time seen: 01/29/25 09:55 Pain control: epidural Pelvic Exam Dilation (cm): 5 Effacement (%): 80 station: -1 Amniotic membrane status: Ruptured (AROM, clear 0950) Contractions Monitor mode: External Contraction frequency: 4 Contraction pattern: Regular Status status: Category l Assessment and Plan Plan: begin patient augmentation Comments: - start pitocin
[2025-01-29] MEDS: OXYTOCIN 30 UNITS/NS 500 ML 30 UNITS/500 ML BAG 6 UNITS IV CONT (10:03)
[2025-01-29] MEDS: CALCIUM CARBONATE (TUMS) 500 MG (200 MG ELEMENTAL) PO (13:13)
[2025-01-29] MEDS: OXYTOCIN 30 UNITS/NS 500 ML 30 UNITS/500 ML BAG 999 UNITS IV CONT (18:28)
[2025-01-29] MEDS: OXYTOCIN 30 UNITS/NS 500 ML 30 UNITS/500 ML BAG 125 UNITS IV CONT (18:59)
--- NOTE | 2025-01-29 19:11 | PM.OBPRVD ---
OB - Vaginal Delivery Note Procedure Delivery date: 01/29/25 Events: Gestational Hypertension Induction method: Per Cervidil Protocol Delivery augmentation: Rupture of Membranes and Pitocin Delivery monitor: External FHT and External Uterine Route of delivery: Episiotomy description: None Laceration Description: Perineal - 2nd Degree Delivery repair: vicryl Specimen: Yes (placenta) Quantitative Blood Loss (ml): 250 Anesthesia type: Epidural Disposition: Floor Complications: No immediate complications Baby Date of : 01/29/25 Time of : 18:27 Gestational Age by Date: 40 (.0) gender: Female Weight (pounds): 8 Weight (ounces): 4 presentation: vertex position: Left Occiput Anterior (left hand by face) Placenta delivery description: Expressed Cord Vessel Description: 3 Vessels and Delayed Cord Clamping score one minute: 9 score five minutes: 9 Narrative: Sally progressed to complete dilation with strong desire to push. She pushed for a little over 1 hour with good maternal effort. She delivered the head over intact perineum. No nuchal cord was palpated. She easily delivered the 's shoulders and body without complication. The was noted to be compound with the left hand up by her face. The infant was immediately placed skin to skin had spontaneous cry. Delayed cord clamping was performed. The umbilical cord was then doubly clamped and cut by dad. A segment of the cord was collected for cord gases. The remaining cord blood was collected for typing. With Pitocin running and gentle downward traction on the cord, the placenta delivered without complication, slight increase in bleeding was noted. Bimanual massage was performed and good uterine tone was then noted with minimal bleeding. She was examined and a second-degree perineal laceration was identified. The perineal laceration was repaired in the normal fashion using 2-0 Vicryl and approximated well with good hemostasis. Slight increase in bleeding was noted once again and a small amount of clots were removed with bimanual massage. Cytotec 800 mcg was placed rectally to prevent further bleeding. At the end of procedure instrument, fluff, and needle counts were correct x2 but a Ray-Oriana was missing. The trash, patient and infant and thier beds were thoroughly examined and no Ray-Oriana was noted. Patient was once again examined and no Ray-Oriana was felt within the vaginal canal. A pelvic x-ray was ordered just to verify that no Ray-Oriana was left within the patient. After everything had been cleaned up, the placental bucket was examined and the missing Ray-Oriana was found, however we decided to proceed with x-ray just as everything had already been cleaned up/trashed.
[2025-01-29 19:50] LABS: Total Protein Urine Random 19 mg/dL
[2025-01-29] MEDS: IBUPROFEN 600 MG TABLET (21:10)
--- NOTE | 2025-01-29 21:31 | OBPPTRN ---
Patient transferred to post room #292 via wheelchair. Support person present. Oriented to unit, room, information board, rooming in, admission packet and security measures. Patient verbalizes understanding.
[2025-01-30] VITALS (12 sets, daily range): BP systolic 127–143; BP diastolic 78–101; PULSE 58–94; RESP 16–18; TEMP 36.3–37; O2SAT 99–100
[2025-01-30] MEDS: ACETAMINOPHEN 325 MG TABLET 650 MG PO ×3 (02:23→19:28)
[2025-01-30 04:17] LABS: Hematocrit 31.1 % (37.0-47.0); Hemoglobin 10.1 g/dL (12.0-15.0)
[2025-01-30] MEDS: CALCIUM CARBONATE (TUMS) 500 MG (200 MG ELEMENTAL) PO ×3 (04:30→19:28)
[2025-01-30] MEDS: IBUPROFEN 600 MG TABLET PO ×4 (05:10→21:28)
--- NOTE | 2025-01-30 08:38 | WPDANLDPN2 ---
Anes-Prog Note L&D Date/Time: 01/30/25 08:38 Comfortable throughout: labor and delivery Neuraxial method: epidural Epidural/Spinal procedure site: clean & non-tender Neuro status: Neuro function grossly intact. Cardiovascular status: normal Respiratory status: normal Airway patency: baseline Mental status: baseline Post-Op hydration status: normal Vital Signs: Last Vital Signs Temp 36.7 C 01/30/25 07:23 Pulse 90 01/30/25 07:35 Resp 16 01/30/25 07:23 BP 136/96 H 01/30/25 07:35 Pulse Ox 100 01/30/25 07:23 O2 Del Method Room Air 01/29/25 21:39 Pain score (VAS): 10 I/O: Intake & Output 01/29/25 01/30/25 01/30/25 23:59 07:59 15:59 Intake Total 550 Output Total 250 2250 Balance -250 -1700 Post-procedural complaints: none Patient feedback: Patient satisfied with anesthetic care.
--- NOTE | 2025-01-30 08:42 | PM.OBPNVD ---
OB - PN: Subj Subjective Date/time seen: 01/30/25 08:42 Narrative: PPD#1 Sally reports doing well today. 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 Her pain is controlled. She is tolerating regular diet, voiding, passing gas, and ambulating without issues. She is breast and bottle feeding. OB - PN: Obj Data Labs 01/30/25 04:01 01/28/25 17:40 Labs: Laboratory Results - last 24 hr 01/29/25 01/30/25 19:35 04:01 Hgb 10.1 L Hct 31.1 L U Random Total Protein 19 Urine Creatinine 54.5 Imaging Radiologist's impression: Impressions Pelvis X-Ray 01/29/25 19:18 Impression: No radiopaque foreign body identified OB - PN A/P Assessment and Plan (1) Normal vaginal delivery of first : Code(s): O80 - Encounter for full-term uncomplicated delivery Status: Acute (2) Pre-eclampsia: Code(s): O14.90 - Unspecified pre-eclampsia, unspecified trimester Status: Acute Plan day: 1 Plan: routine care Comments: - PO pain meds - Regular diet - Ambulation and hydration encouraged - Continue bottle/breast q2-3hr - P/C ratio 0.34; BPs in moderate to severe range; will start labetalol 200mg BID; asymptomatic, continue to monitor BPs q4h Time Spent With Patient Time: Total time spent is greater than 50% in coordination of care (as documented) at patient's floor/unit and/or counseling patient: Review of Systems Constitutional: Constitutional: Denies chills, Denies fever(s) and Denies headache(s) Eyes: Eyes: Denies change in vision ENT: Denies dizziness and Denies headache(s) Cardiovascular: Cardiovascular: Denies chest pain, Denies palpitations and Denies dyspnea Respiratory: Respiratory: Denies cough and Denies dyspnea Gastrointestinal: Gastrointestinal: Denies nausea and Denies vomiting Neurologic: Denies dizziness and Denies headache(s) Endocrine: Endocrine: Denies palpitations Exam Const: General: cooperative, comfortable, no acute distress and obese Orientation/consciousness: patient oriented x3 Resp: Effort & Inspection: normal respiratory effort Auscultation: clear to auscultation bilaterally Cardio: Rate: regular rate GI: Inspection: non-distended GI Palp: No abdominal tenderness and Yes Soft to palpation Auscultation: normal bowel sounds : Other: fundus firm at umbilicus Skin: General skin exam: normal color Neuro: General: patient oriented x3 Extrem: General: normal to inspection Psych: Appearance: grossly normal Affect: normal affect Attitude: cooperative
[2025-01-30] MEDS: LABETALOL HCL 100 MG TABLET 200 MG PO ×2 (08:59→21:30)
[2025-01-30] MEDS: OMEGA 3 POLYUNSAT FATTY ACIDS 1 GM CAP PO (09:00)
[2025-01-30] MEDS: MULTIVIT/MIN/PREN/FOL AC/IRON TABLET 1 TAB PO (09:00)
[2025-01-30] MEDS: DOCUSATE SODIUM 100 MG CAPSULE PO (09:00)
[2025-01-30] MEDS: ONDANSETRON HCL ODT 4 MG TABLET PO (10:29)
[2025-01-31] VITALS: BP 128/89; PULSE 81; O2SAT 99
[2025-01-31 04:45] VITALS: BP 135/88
[2025-01-31] MEDS: IBUPROFEN 600 MG TABLET PO ×2 (04:58→11:32)
[2025-01-31] MEDS: ACETAMINOPHEN 325 MG TABLET 650 MG PO (07:09)
[2025-01-31 07:10] VITALS: BP 139/89; PULSE 91; RESP 16; TEMP 36.6; O2SAT 98
[2025-01-31 09:20] VITALS: PULSE 80
[2025-01-31] MEDS: OMEGA 3 POLYUNSAT FATTY ACIDS 1 GM CAP PO (09:20)
[2025-01-31] MEDS: MULTIVIT/MIN/PREN/FOL AC/IRON TABLET 1 TAB PO (09:20)
[2025-01-31] MEDS: LABETALOL HCL 100 MG TABLET 200 MG PO (09:20)
--- NOTE | 2025-01-31 09:21 | P.DS_ITS ---
DS: Admitting Diagnosis Discharge Date 01/31/25 Admitting Diagnosis Induction of labor DS: Discharge Diagnosis Discharge Diagnosis (1) Normal vaginal delivery of first : Code(s): O80 - Encounter for full-term uncomplicated delivery Status: Acute (2) Pre-eclampsia: Code(s): O14.90 - Unspecified pre-eclampsia, unspecified trimester Status: Acute OB - DS: Summary OB Procedures : PIH Mgmt and Ultrasound OB Procedures Intrapartum: Spontaneous Vag Delivery OB Procedures: : None Peripartum Data Infant Delivery Method: Natural Vaginal Laceration Description: Perineal - 2nd Degree Episiotomy description: None complications: none Thayer 1: Gender: Female Disposition of : home Status at Discharge Functional status at discharge: independent ambulation Overall status at discharge: patient is back to baseline Time Spent with Patient Time attestation: Total time spent providing and/or coordinating discharge services: Exam Const: General: cooperative, comfortable, no acute distress and obese Nutritional Appearance: obese Orientation/consciousness: patient oriented x3 Resp: Effort & Inspection: normal respiratory effort Auscultation: clear to auscultation bilaterally Cardio: Rate: regular rate GI: Inspection: non-distended GI Palp: No abdominal tenderness and Yes Soft to palpation Auscultation: normal bowel sounds : Other: fundus firm Skin: General skin exam: normal color Neuro: General: patient oriented x3 Extrem: General: normal to inspection Psych: Appearance: grossly normal Affect: normal affect Attitude: cooperative Discharge Plan Discharge Attending physician on discharge: Katalina Salazar Discharging Clinician: Katalina Salazar Patient Disposition: Home Activity: may shower and pelvic rest Diet: regular Patient Instructions: Antibiotic Form Patient Language: Swedish Stand Alone Forms: General Discharge Information Follow-up/Referrals: Katalina Salazar MD [Physician, SECURITY SYSTEMS INSTALLER] Discharge Medications: New acetaminophen 325 mg Tablet 650 mg PO Q6H PRN (Reason: Mild Pain (1-3) Or Headache) Qty: 60 0RF docusate sodium 100 mg Capsule 100 mg PO BID PRN (Reason: Constipation) Qty: 90 0RF ibuprofen 600 mg Tablet 600 mg PO Q6H PRN (Reason: Cramping) Qty: 40 0RF labetalol 200 mg tablet 200 mg PO Q12H 42 Days Qty: 84 0RF Continued DHA 200 mg capsule 200 mg PO DAILY Discontinued aspirin 81 mg tablet,chewable 81 mg PO DAILY Unisom (doxylamine) 25 mg tablet 25 mg PO QHS PRN (Reason: sleep) acetaminophen [Acetaminophen Extra Strength] 500 mg tablet 500 mg PO Q6H PRN (Reason: pain) Date of admission: 01/28/25 17:01 Primary Care Provider: Callum Harding Admitting Provider: Katalina Salazar Attending physician on admission: Katalina Salazar Condition: Stable
--- NOTE | 2025-01-31 10:20 | PC.NURSE ---
Consulted with mother concerning needs and she shared her ability to independently latch infant optimally without pain. Mother is feeding appropriately for growth of and understands stimulating to eat if needed. Infant has had appropriate feedings in the last 24 hours meets the outcomes for weight, output, blood sugar and jaundice at this time. Mom is pumping and supplementing with colostrum after , especially when baby is sleepy at breast. She has her own wearable pump. Reinforced understanding of milk production, transition of milk, signs of adequate intake, transition of stool, prevention/relief of engorgement, mastitis, responsive at least 8 times every 24 hours. Community resources given with outpatient assistance and when to call a provider using the resource of the feeding sheet along with the mom and baby guide. Mother voiced understanding of the information shared, is confident to continue effectively her at home, when to call for assistance, denies any additional assistance or education at this time. Reported to the Primary RN.
[2025-01-31 12:00] VITALS: BP 134/78; PULSE 91; RESP 16; TEMP 36.9; O2SAT 98
--- NOTE | 2025-02-01 07:53 | S_PTH ---
PATIENT: Sally Haney LOC: ANHOB2 U#:[id number] AGE/SX: 24/F ROOM: 292 RE01/28/[address]: Katalina Salazar MD : [id number] BED: 00 DIS: 01/31/2025 SPEC #: [id number] RECD: 02/01/25 08:02 STATUS: GRETTA REClaribel #: [id number] JOCELINE: 02/01/25 07:[address]: Katalina Salazar DEPT: [facility] Surgical RECD BY: Clare Stern ENTERED: 02/01/25 08:03 SP TYPE: Surgical OTHR DR: Callum Harding APRN Tissues: A - Placenta Procedures: Hematoxylin and Eosin Stain Gross and Microscopic Level 5
[2025-02-01 11:11] VITALS: BP 131/75; PULSE 88; RESP 18; TEMP 37.1; O2SAT 100
== END 2025-01-31 12:27 | disposition home or self-care (01) | DRG 807 ==
LOC: ANHLDR 17:05 → ANHOB2 01-29 21:32
PROVIDERS: Admitting Provider Obstetrics & Gynecology; PCP Student in an Organized Health Care Education/Training Program; Visit Provider Obstetrics & Gynecology
DX: O14.04 Mild to moderate pre-eclampsia, complicating childbirth (principal); Z37.0 Single live birth; Z3A.40 40 weeks gestation of pregnancy; O24.429 Gestational diabetes mellitus in childbirth, unspecified control; O70.1 Second degree perineal laceration during delivery; O32.6XX0 Maternal care for compound presentation, not applicable or unspecified
CPT/HCPCS: 36415; 72170; 80053; 81050; 82570; 84156; 84550; 85014; 85018; 85025; 86593; 86850; 86900; 86901; 88307; A9270; J2405; J2590; J2795; J3010; J7120

== ENCOUNTER 2025-04-05 13:36 | Outpatient (CLI) | payer BC, SELFPAY ==
--- OUTSIDE RECORDS SUMMARY | 2025-04-05 15:05 | XMS_ITS | Clinical Summary ---
Author Organization [facility] [employer] Address [address] [place] [address] Care Team Providers Care Shop Teacher Name Role Phone Unavailable Primary Care Provider Unavailabl e Source Comments [facility] [employer],non-owned Affiliates and Associated Physician Practices is amultiple site organization consisting of ambulatory clinics and hospital sitesin [place], [place] and [place]. This disclosure is being madepursuant to the Care Everywhere program and may not contain all information available regarding this patient. Last updated 18.[facility] [employer] Allergies No known active allergies Medications * [...] Type Department Care Team Description 01/07/2025 Telephone [facility] Maternal & Care [address] [place] [id number] Marguerite Bruner RN Question (Per Benjamin at [facility] is not doing echo cardiograms so they won't be able to order one on patient. Dr. Salazar is asking if we can order it. Orders placed. ) 01/05/2025 10:25 AM CDT - 01/05/2025 11:59 PM CDT Hospital Encounter [facility] Maternal & Care [address] [place] [phone] Cash Duvall MD Discharge Disposition: Home or Self Care 01/05/2025 10:23 AM CDT - 01/05/2025 10:24 AM CDT Hospital Encounter [facility] Maternal & Care [address] [place] [id number] Cash Duvall MD Discharge Disposition: Home or [...] of 3 - 19+ 3-dose series) 09/06/2019 PAP SMEAR 2021 DEPRESSION SCREENING 06/02/2024 OB-ONE HOUR GLUCOSE 10/23/2024 OB-RHOGAM INJECTION 11/06/2024 OB-GROUP B STREP SCREEN 12/25/2024 COVID-19 VACCINE (1 - 2023-2 5 season) 2025 INFLUENZA VACCINE (#1) 2025 , 03/20/2022, 04/13/2019 [...] (HCC) Encounter for ultrasound to assess growth ([facility]) 36 weeks gestation of ([facility]) from Last 3 Months Results * Sonogram [...] Amount of AF: normal. MVP 4.3 cm. VINCNET 12.8 cm. Q1 2.6 cm, Q2 2.7 [...] 6 lb 9 oz EFW by Hadlock ([id number]) appropriate Growth Overview Exam date [place] BPD [...] Heart / Thorax 4-chamber view. LVOT view. 1-ilycow-hqbquzm view. Aortic arch view. Ductal arch view. [...] Follow-up ======== Follow up as clinically indicated. [facility] [employer] PACS Anatomical Region Laterality Modality Other 01/05/2025 10:3 4 AM CDT Cash Duvall MD [facility] ORDERABLES Edited Result - Final from Last 3 Months Insurance [place] - [place] [facility] SELF PAY NO INSURANCE Member Subscriber Plan / Payer (Ef fective for All Dates) Name:Cooper Muro Member ID:Not on file Relation to Subscriber:Not on file Name:COOPER MURO Subscriber ID:Not on file (Home) Address: [address] [place] [id number] Payer ID:Not on file Group ID:Not on file Type:Self Pay Address: [place], [place]ET[place] [facility]
[2025-04-05 19:32] LABS: Beta HCG Quantitative < 2.39 mIU/ML
== END 2025-04-05 13:37 | disposition home or self-care (01) ==
LOC: ANHGOSHLAB 13:37
PROVIDERS: PCP Student in an Organized Health Care Education/Training Program; Visit Provider Obstetrics & Gynecology
DX: Z30.430 Encounter for insertion of intrauterine contraceptive device (principal)
CPT/HCPCS: 36415; 84702

== ENCOUNTER 2025-05-11 15:47 | Emergency (ER) | payer BC, SELFPAY ==
[2025-05-11 16:01] VITALS: BP 111/74; PULSE 79; RESP 16; TEMP 36.3; O2SAT 100
--- NOTE | 2025-05-11 16:16 | ED.SKABFB ---
HPI - Skin/Abscess/Foreign Bdy General Chief complaint: Extremity Injury, Lower Stated complaint: toe nail Time Seen by Provider: 05/11/25 16:17 Source: patient and RN notes reviewed Mode of arrival: ambulatory Limitations: dementia History of Present Illness HPI narrative: 24-year-old female presents with concerns for pain, redness swelling near the nail bed of the 1st digit of the right foot. She reports 1-2 weeks ago she tried to remove a ingrown toenail, reports she gets those often and she is usually able to get amount without problem. Denies discharge MD complaint: other (Redness) Related Data Allergies Allergy/AdvReac Type Severity Reaction Status Date / Time No Known Allergies Allergy Verified 05/11/25 16:03 Review of Systems Review of Systems: CONSTITUTIONAL: Denies malaise, chills, sweats, or fever. EYES: Denies redness, or discharge. ENT: Denies rhinorrhea, congestion, swollen lips, swollen tongue CARDIOVASCULAR: Denies chest pain, palpitations, or edema. RESPIRATORY: Denies cough or dyspnea. GASTROINTESTINAL: Denies abdominal pain, nausea, vomiting SKIN: Reports redness, swelling, tenderness near the nail bed of the 1st digit your of the right foot. Denies purulent drainage, vesicles, bullae, numbness, pain beyond proportion MUSCULOSKELETAL: Denies joint pain or myalgia. NEUROLOGIC: Denies headache. 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 low probability for vascular type, pt to follow up at [place] for further Suppression of menses Headache, migraine Surgical History Surgical History H/O foot surgery heel surgery History of tonsillectomy (~2005) Family History Family History Father Heart valve problem Mother Heart valve problem Sibling Depression Asthma Grandparent Heart valve problem COPD (chronic obstructive pulmonary disease) Colon polyp Grandparent Brain cancer Grandparent Maternal hemorrhaging affecting delivery Sibling Maternal hemorrhaging affecting delivery Social History Social History (Updated 04/08/25 @ 14:48 by Alie Self [facility]) 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- coffee and cola Smoking status: Former smoker Tobacco type: e-cigarettes/vaping Second hand tobacco smoke exposure: Yes Alcohol intake: former Drinks per week: 1 Alcohol use details: social Substance use: never Substance use type: does not use Lack of Transportation: No Lack of Food: Never True Current Housing: I Have Housing Concerned About Future Housing: No Difficulty Paying Gas/Electric Bills: No Difficulty Paying for Meds: No Currently Unemployed: No Education: Trade/Vocational Certificate Difficulty w/ Childcare or Family Care: No Living arrangements: with family Occupation/Education: occupation 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 There is no relevant family history pertinent to the presenting complaint Exam Narrative: GENERAL: Well-appearing, well-nourished, and in no acute distress. HEAD: Normocephalic, atraumatic. EYES: PERRLA, conjunctivae clear ENT: Mucous membranes moist. NECK: Supple. No lymphadenopathy CHEST: Clear to auscultation. No respiratory distress. HEART: Regular rate and rhythm. SKIN: Warm, dry. Erythema, induration, tenderness, warmth with sharp margins noted (xx). No vesicles, bullae, necrosis, ecchymosis, crepitus noted. NEURO: Alert and oriented x3. PSYCH: Normal mood and affect Course Course Emergency Course: Patient is aware of diagnosis, understands and agrees to treatment plan. Anticipatory guidance given. Patient agrees to follow-up as directed and is aware of reasons to seek care at the emergency department. Portions of this record may have been created with voice recognition software Level of Care: Express Care Visit Vital Signs Vital signs: Vital Signs Temperature 97.4 F L 05/11/25 16:01 Pulse Rate 79 05/11/25 16:01 Respiratory Rate 16 05/11/25 16:01 Blood Pressure 111/74 05/11/25 16:01 Pulse Oximetry 100 05/11/25 16:01 Oxygen Delivery Room Air 05/11/25 16:01 Temperature 97.4 F L 05/11/25 16:01 Pulse Rate 79 05/11/25 16:01 Respiratory Rate 16 05/11/25 16:01 Blood Pressure 111/74 05/11/25 16:01 Pulse Oximetry 100 05/11/25 16:01 Oxygen Delivery Room Air 05/11/25 16:01 [facility] Differential Diagnosis Differential Diagnosis: I evaluated this patient in the [facility]. History is obtained from patient who is an independent historian and physical exam was performed.? Available medical records were reviewed. ? Exam findings and relevant testing show no acute concerns or changes; patient is non-toxic appearing and is in no distress. ? Stasis dermatitis, lymphedema, DVT, gout, thrombophlebitis, necrotizing fasciitis, erysipelas, insect bite, fungal infection Differential diagnosis and treatment plan were discussed with the patient. Patient agrees with discussion and after shared medical decision making agrees with plan of care. All questions were answered to the patient's satisfaction. Patient is appropriate for outpatient treatment and follow-up. Discharge Plan Discharge Clinical Impression: Paronychia Patient Disposition: Home Condition: Stable Instructions: Antibiotic Form, Paronychia (ED) Additional Instructions: Soak your nail: Soak your nail in a mixture of equal parts vinegar and water 3 or 4 times each day. This will help decrease inflammation. Apply a warm compress: Soak a washcloth in warm water and place it on your nail. This will help decrease inflammation. Elevate: Raise your nail above the level of your heart as often as you can. This will help decrease swelling and pain. Prop your nail on pillows or blankets to keep it elevated comfortably. Use lotion: Apply lotion after you wash your hands. This will prevent your skin from becoming too dry. Please follow-up with your primary care doctor in the next 1-2 days. If you cannot follow-up with your primary care doctor please go to the ED for any urgent issues. 2) If you have any worsening of symptoms or any other concerns please go to the ED immediately. 3) Please take medications as prescribed andcontinue taking your home medications as usual. Patient Language: Chinese Prescriptions: New sulfamethoxazole-trimethoprim 800-160 mg tablet 1 tablet PO Q12H 7 Days Qty: 14 0RF Follow-up/Referrals: Callum Harding APRN [Primary Care Provider, [facility]] Time of Disposition: 16:21
--- OUTSIDE RECORDS SUMMARY | 2025-05-11 20:48 | XMS_ITS | Clinical Summary ---
Author Organization [facility] [employer] Address [address] [place] [address] Care Team Providers Care Panelboard Assembler Name Role Phone Unavailable Primary Care Provider Unavailabl e Source Comments [facility] [employer],non-owned Affiliates and Associated Physician Practices is amultiple site organization consisting of ambulatory clinics and hospital sitesin [place], [place], [place] and [place]. This disclosure is being madepursuant to the Care Everywhere program and may not contain all information available regarding this patient. Last updated 18.[facility] [employer] Allergies No known active allergies Medications * [...] Increased risk for precipitous labor and PPH Family History Medical History Relation Name Comments Other - Cardiac Father Cancer - Colon Maternal Grandmother Relation Name Status Comments Father Maternal Grandmother Social History Tobacco Use Types Packs/Day Years Used Date Smoking Tobacco: Never Smokeless Tobacco: Never Tobacco Cessation:Counseling Given: Not Answered Alcohol Use Standard Drinks/Week Comments Not Currently 0 (1 standard drink = 0.6 oz pur e alcohol) Comments No Sex and Gender Information Value Date Recorded [...] 09/06/2019 PAP SMEAR 2021 DEPRESSION SCREENING 06/02/2024 COVID-19 VACCINE (1 - 2024-2 6 season) 2025 INFLUENZA VACCINE (#1) 2025 , 03/20/2022, 04/13/2019 ZOSTER VACCINE (1 of 2) 2050 HIB VACCINE Aged Out No longer eligi [...] on patient's age to complete this topic Insurance [place] [facility] ANTHEM [facility] SELF PAY NO INSURANCE Member Subscriber Plan / Payer (Ef fective for All Dates) Name:MaxinetaylorCooper Member ID:Not on file Relation to Subscriber:Not on file Name:MAXINETaylorCOOPER Subscriber ID:Not on file (Home) Address: [address] [place] [id number] Payer ID:Not on file Group ID:Not on file Type:Self Pay Address: [place], [place] AETNA [place] [facility]
== END 2025-05-11 16:24 | disposition home or self-care (01) ==
PROVIDERS: Emergency Provider Nurse Practitioner; PCP Student in an Organized Health Care Education/Training Program
DX: L03.031 Cellulitis of right toe (principal); Q79.62 Hypermobile Ehlers-Danlos syndrome; Z87.891 Personal history of nicotine dependence
CPT/HCPCS: 99213; G0463